=== PATIENT | male | born 1945 | race Caucasian/White ===

== ENCOUNTER 2018-02-15 22:49 | Inpatient (IN) ==
[2018-02-16 00:13] LABS: Basophils % 0.1 %; Hematocrit 39.7 % (37.5-50.1); Hemoglobin 13.9 g/dL (12.9-16.9); Immature Granulocytes % 1.5 % (0-4); Lymphocytes # 0.9 K/mcL (0.6-4.6); Lymphocytes % 4.4 %; Mean Corpuscular Hemoglobin 31.4 pg (28.0-33.3); Mean Corpuscular Volume 89.6 fL (83.0-100.0); Mean Platelet Volume 10.3 fL (9.4-12.4); Monocytes # 1.2 K/mcL (0.0-1.3); Monocytes % 5.4 %; Neutrophils # 18.9 K/mcL (1.6-8.9); Platelet Count 203 K/mcL (140-400); Red Blood Count 4.43 M/mcL (4.19-5.50); Red Cell Distribution Width 12.6 % (11.5-14.5); Segmented Neutrophils % 88.6 %
[2018-02-16 00:17] LABS: Prothrombin Time 10.8 Seconds (9.4-12.1)
[2018-02-16 00:33] LABS: BUN/Creatinine Ratio 21 (6-26); Blood Urea Nitrogen 29 mg/dL (8-23); Calcium 9.1 mg/dL (8.6-10.3); Carbon Dioxide 23 mEq/L (23-29); Chloride 104 mEq/L (98-107); Glucose 258 mg/dL (70-105); Osmolality,Calculated 293 (280-300); Potassium 4.4 mEq/L (3.5-5.1); Sodium 134 mEq/L (136-145); eGFR For Non-African Americans 52 (> 60)
[2018-02-16 00:38] LABS: Troponin I 0.05 ng/mL (< 0.04)
[2018-02-16] MEDS ORDERED: Aspirin 81 MG TAB.CHEW PO STA (00:40)
--- NOTE | 2018-02-16 01:01 | Emergency Department Note ---
Disposition Clinical Impression: Hx of heart bypass surgery Chest pain Qualifiers: Chest pain type: unspecified Qualified Code(s): R07.9 - Chest pain, unspecified Disposition: Admitted As Inpatient Condition: Good Time of Disposition: 02:11 General Adult HPI - General Chief complaint: ED Chest Pain Stated complaint: CP Time Seen by Provider: 02/16/18 00:03 Source: patient Mode of arrival: ambulatory Limitations: language barrier Nursing Notes Reviewed: Yes Vital Signs Reviewed: Yes - History of Present Illness HPI Narrative: Patient is a 72-year-old male that since emergency Department with chest heaviness. Patient states that this began at approximately 2100 last night. Patient states that he had chest heaviness and shoulder pain. States that he did take 2 nitroglycerin produced seem to relieve his tightness and heaviness. Patient states he did not really have any nausea or shortness of breath associated with his chest pain. Family states that they felt like he was having increased work of breathing but he states that he did not. Patient states that he has a significant cardiac history of quadruple bypass with 8 stents placed in his heart. Patient states that he has now pain free and does not have any heaviness on his chest. Pain Scale: 7 - Related Data Home Medications Medication Instructions Recorded Confirmed Aspirin Enteric Coated [Aspirin EC] 81 mg PO HS 05/06/15 05/06/15 Metoprolol XL (24 HR) Succ [Toprol 25 mg PO DAILY 05/06/15 05/06/15 XL] Multivitamin [Flintstones] 1 each PO DAILY 05/06/15 05/06/15 Simvastatin [Zocor] 40 mg PO HS 05/06/15 05/06/15 Valsartan [Diovan] 40 mg PO DAILY 05/06/15 05/06/15 Amlodipine Besylate 5 mg PO DAILY 02/16/18 02/16/18 Methocarbamol [Robaxin-750] 750 mg PO DAILY 02/16/18 02/16/18 Primidone [Mysoline] 50 mg PO HS 02/16/18 02/16/18 Allergies Allergy/AdvReac Type Severity Reaction Status Date / Time clopidogrel [From Plavix] Allergy Anaphylaxis Verified 05/06/15 08:43 Sulfa (Sulfonamide AdvReac See Verified 05/06/15 08:43 Antibiotics) Comments tramadol AdvReac Nausea Verified 09/14/18 22:58 All systems ED: reviewed and negative except as stated. Cardiovascular: Reports: chest pain Respiratory: Denies: dyspnea Gastrointestinal: Denies: abdominal pain, nausea Past Medical History - Past Medical History Medical history: Reports: arthritis, atrial fibrillation, coronary artery disease, hyperlipidemia, hypertension Surgical history: Reports: angioplasty/stent, coronary bypass (CABG) Psychiatric history: Reports: anxiety, depression - Social History Smoking Status: Former smoker Smokeless Tobacco Status: No Alcohol use: Reports: occasionally Drug use: Reports: none Physical Exam - General Limitations: no limitations General appearance: alert, in no apparent distress - Head Head exam: atraumatic, normocephalic - Eye Eye exam: Present: normal appearance, EOMI - Neck Neck exam: Present: normal inspection, full ROM, trachea midline - Respiratory Respiratory exam: Present: normal lung sounds bilaterally. Absent: respiratory distress, wheezes - Cardiovascular Cardiovascular exam: Present: regular rate, normal rhythm, normal heart sounds, +S1, +S2 - Abdominal Exam Abdominal exam: Present: soft, Non-Tender, normal bowel sounds - Neurological Exam Neurological exam: Present: alert, oriented X3 - Psychiatric Psychiatric exam: Present: normal affect, normal mood - Skin Skin exam: Present: warm, dry, intact Course Vital Signs Temperature 97.8 F 02/15/18 22:52 Pulse Rate 65 02/15/18 22:52 Respiratory Rate 16 02/15/18 22:52 Blood Pressure 187/69 02/15/18 22:52 O2 Sat by Pulse Oximetry 98 02/15/18 22:52 Temperature 97.8 F 02/15/18 22:52 Pulse Rate 56 02/16/18 01:07 Respiratory Rate 17 02/16/18 01:07 Blood Pressure 154/60 02/16/18 01:11 O2 Sat by Pulse Oximetry 98 02/16/18 01:07 Oxygen Delivery Oxygen Delivery Room Air Medical Decision Making - [facility] Narrative Medical decision making narrative: Due the patient presenting to the emergency department with chest pressure and a significant cardiac history there is concern for possible cardiac involvement. We will obtain basic laboratory testings EKG and chest x-ray. EKG did not show any ischemic changes. Chest x-ray showed no acute process. The patient did have an elevated troponin of 0.05. Patient also had an elevated white count of 21.3 however this is a nonspecific finding. Patient does have an elevated glucose of 258. Patient's creatinine is slightly worsened and is 1.35 today. Due to the patient having recent chest pressure was relieved by nitroglycerin and elevated troponin without previous for comparison I feel it is important the patient be admitted to the hospital for further evaluation and management. The patient will be admitted to the medical service. Called and spoke with the admitting hospitalist and he is accepted the patient to their service or patient be admitted to the hospital this time for further evaluation and management. - Medical Records Medical records reviewed: Yes I reviewed the patient's medical records. - Lab Data Lab results reviewed: Yes I reviewed the patient's lab results. Result diagrams: 02/16/18 00:01 02/16/18 00:01 Lab Results 02/16/18 02/16/18 02/16/18 Range/Units 00:01 00:01 00:01 WBC 21.3 H (4.3-11.1) K/mcL RBC 4.43 (4.19-5.50) M/mcL Hgb 13.9 (12.9-16.9) g/dL Hct 39.7 (37.5-50.1) % MCV 89.6 (83.0-100.0) fL MCH 31.4 (28.0-33.3) pg MCHC 35.0 (31.6-35.5) g/dL RDW 12.6 (11.5-14.5) % Plt Count 203 (140-400) K/mcL MPV 10.3 (9.4-12.4) fL Immature Gran % 1.5 (0-4) % Seg Neutrophils % 88.6 % Lymphocytes % 4.4 % Monocytes % 5.4 % Eosinophils % 0.0 % Basophils % 0.1 % Neutrophils # 18.9 H (1.6-8.9) K/mcL Lymphocytes # 0.9 (0.6-4.6) K/mcL Monocytes # 1.2 (0.0-1.3) K/mcL Eosinophils # 0.0 (0.0-0.6) K/mcL Basophils # 0.0 (0.0-0.2) K/mcL PT 10.8 (9.4-12.1) Seconds INR 1.0 APTT 28.0 (26.0-36.0) Seconds Sodium 134 L (136-145) mEq/L Potassium 4.4 (3.5-5.1) mEq/L Chloride 104 (98-107) mEq/L Carbon Dioxide 23 (23-29) mEq/L BUN 29 H (8-23) mg/dL Creatinine 1.35 H (0.70-1.30) mg/dL Est GFR ( Amer) > 60 (> 60) Est GFR (Non-Af Amer) 52 L (> 60) BUN/Creatinine Ratio 21 (6-26) Glucose 258 H (70-105) mg/dL Calculated Osmolality 293 (280-300) Calcium 9.1 (8.6-10.3) mg/dL Troponin I 0.05 H* (< 0.04) ng/mL - Radiology Data Radiology results reviewed: Yes I reviewed the patient's radiology results. Chest X-Ray 02/16/18 00:01 IMPRESSION: No acute disease. D/ / Shola Mart MD / Shola Mart MD Interpreting Provider: Shola Mart MD
[2018-02-16] MEDS ORDERED: 0.9 % Sodium Chloride 1,000 ML IVC SCH (02:30)
--- NOTE | 2018-02-16 02:35 | Emergency Department Note ---
Disposition Clinical Impression: Hx of heart bypass surgery Chest pain Qualifiers: Chest pain type: unspecified Qualified Code(s): R07.9 - Chest pain, unspecified Disposition: Admitted As Inpatient Condition: Good General Adult HPI - General Chief complaint: ED Chest Pain Stated complaint: CP Time Seen by Provider: 02/16/18 00:03 Source: patient Mode of arrival: ambulatory Limitations: no limitations Nursing Notes Reviewed: Yes Vital Signs Reviewed: Yes - History of Present Illness Pain Scale: 0 - Related Data Home Medications Medication Instructions Recorded Confirmed Aspirin Enteric Coated [Aspirin EC] 81 mg PO HS 05/06/15 02/16/18 Metoprolol XL (24 HR) Succ [Toprol 50 mg PO DAILY 05/06/15 02/16/18 XL] Multivitamin [Flintstones] 1 each PO DAILY 05/06/15 02/16/18 Simvastatin [Zocor] 40 mg PO HS 05/06/15 02/16/18 Valsartan [Diovan] 40 mg PO DAILY 05/06/15 02/16/18 Amlodipine Besylate 5 mg PO DAILY 02/16/18 02/16/18 Methocarbamol [Robaxin-750] 750 mg PO DAILY 02/16/18 02/16/18 Primidone [Mysoline] 50 mg PO HS 02/16/18 02/16/18 Allergies Allergy/AdvReac Type Severity Reaction Status Date / Time clopidogrel [From Plavix] Allergy Anaphylaxis Verified 05/06/15 08:43 Sulfa (Sulfonamide AdvReac See Verified 05/06/15 08:43 Antibiotics) Comments tramadol AdvReac Nausea Verified 02/15/18 22:58 Cardiovascular: Reports: chest pain Respiratory: Denies: dyspnea Gastrointestinal: Denies: abdominal pain, nausea Past Medical History - Past Medical History Medical history: Reports: arthritis, atrial fibrillation, coronary artery disease, hyperlipidemia, hypertension Surgical history: Reports: angioplasty/stent, coronary bypass (CABG) Psychiatric history: Reports: anxiety, depression - Social History Smoking Status: Former smoker Smokeless Tobacco Status: No Alcohol use: Reports: occasionally Drug use: Reports: none Physical Exam - General Limitations: no limitations General appearance: alert, in no apparent distress Course Vital Signs Temperature 97.8 F 02/15/18 22:52 Pulse Rate 65 02/15/18 22:52 Respiratory Rate 16 02/15/18 22:52 Blood Pressure 187/69 02/15/18 22:52 O2 Sat by Pulse Oximetry 98 02/15/18 22:52 Temperature 97.8 F 02/15/18 22:52 Pulse Rate 56 02/16/18 01:07 Respiratory Rate 17 02/16/18 01:07 Blood Pressure 154/60 02/16/18 01:11 O2 Sat by Pulse Oximetry 98 02/16/18 01:07 Oxygen Delivery Oxygen Delivery Room Air Medical Decision Making - Medical Records Medical records reviewed: Yes I reviewed the patient's medical records. - Lab Data Lab results reviewed: Yes I reviewed the patient's lab results. Result diagrams: 02/16/18 00:01 02/16/18 00:01 Lab Results 02/16/18 02/16/18 02/16/18 Range/Units 00:01 00:01 00:01 WBC 21.3 H (4.3-11.1) K/mcL RBC 4.43 (4.19-5.50) M/mcL Hgb 13.9 (12.9-16.9) g/dL Hct 39.7 (37.5-50.1) % MCV 89.6 (83.0-100.0) fL MCH 31.4 (28.0-33.3) pg MCHC 35.0 (31.6-35.5) g/dL RDW 12.6 (11.5-14.5) % Plt Count 203 (140-400) K/mcL MPV 10.3 (9.4-12.4) fL Immature Gran % 1.5 (0-4) % Seg Neutrophils % 88.6 % Lymphocytes % 4.4 % Monocytes % 5.4 % Eosinophils % 0.0 % Basophils % 0.1 % Neutrophils # 18.9 H (1.6-8.9) K/mcL Lymphocytes # 0.9 (0.6-4.6) K/mcL Monocytes # 1.2 (0.0-1.3) K/mcL Eosinophils # 0.0 (0.0-0.6) K/mcL Basophils # 0.0 (0.0-0.2) K/mcL PT 10.8 (9.4-12.1) Seconds INR 1.0 APTT 28.0 (26.0-36.0) Seconds Sodium 134 L (136-145) mEq/L Potassium 4.4 (3.5-5.1) mEq/L Chloride 104 (98-107) mEq/L Carbon Dioxide 23 (23-29) mEq/L BUN 29 H (8-23) mg/dL Creatinine 1.35 H (0.70-1.30) mg/dL Est GFR ( Amer) > 60 (> 60) Est GFR (Non-Af Amer) 52 L (> 60) BUN/Creatinine Ratio 21 (6-26) Glucose 258 H (70-105) mg/dL Calculated Osmolality 293 (280-300) Calcium 9.1 (8.6-10.3) mg/dL Troponin I 0.05 H* (< 0.04) ng/mL - Radiology Data Radiology results reviewed: Yes I reviewed the patient's radiology results. Chest X-Ray 02/16/18 00:01 IMPRESSION: No acute disease. D/ / Shola Mart MD / Shola Mart MD Interpreting Provider: Shola Mart MD - EKG Data EKG #1 EKG attestation: Yes I reviewed and interpreted this EKG. EKG results narrative: EKG shows a normal sinus rhythm with ventricular rate is 62. No acute ST segment elevation or depression. No arrhythmia or ectopy. DE interval 194. QRS duration 120. Attestation Statement - Attestation Attestation: I, Byron Lechuga MD, personally evaluated this patient and discussed their management with the resident physician. I reviewed the resident's note and agree with the documented findings, medical decision making, and plan of care. 72-year-old male with history of coronary artery disease and status post CABG as well as coronary artery stents presents to the emergency department with a complaint of an episode of mid substernal chest pressure and tightness which started about 9:30 this evening while he was sitting watching television. Patient took 2 nitroglycerin and had complete relief of the chest pain after the second nitroglycerin. The total episode lasted about 20 minutes or so. He denies any increased shortness of breath with the episode. No diaphoresis. No nausea or vomiting. The pain did seem to radiate to both shoulders. He denies any pain at present. On examination patient is a well-developed well-nourished well-appearing elderly male in no acute distress. He is alert and oriented 3. There is no cyanosis or diaphoresis. Chest is nontender to palpation. Breath sounds are clear and equal bilaterally. Heart regular rate and rhythm. Abdomen soft and nontender with normal bowel sounds. Trace pedal edema. No acute ischemic changes on EKG. Chest x-ray negative. Labs reviewed. Troponin 0.05. The hospitalist, Dr. Townsend, was consulted and accepted admission of the patient.
--- NOTE | 2018-02-16 02:40 | Internal Med History&Physical ---
Date of Encounter: 02/16/18 Time of Encounter: 02:37 Internal Medicine - H&P: HPI Chief complaint: Chest pressure Admitted From: Home Plans for Post Hospital Care: Home History of present illness: Mr. Boyd is a 72 year old with a history of hypertension, hyperlipidemia, peripheral artery disease and severe coronary artery disease status post quadruple bypass and currently having 8 indwelling stents in his heart as well as 5 stents in his lower extremities, last undergoing cardiac catheter 3 years ago where he was seen to have severe three-vessel disease and 2 of 3 patent bypass grafts with an occluded SVG OM distribution supplied by collaterals with the recommendation of optimized medical therapy. He presents now with a complaint of chest pressure that started about 9:30 PM tonight while he was at rest with no inciting factor which prompted him to take one tablet of nitroglycerin which he says he has not taking in many years. The second tablets to achieve comfort and relief from the pressure. Here he was found hemodynamically stable and was given loading dose of aspirin. He says since his last cardiac catheter he was taken off prasugrel and is currently on low-dose aspirin alone. His EKG did not show acute signs of ischemia however he had a mildly elevated troponin at 0.05 for which reason he is now admitted for further observation. Assessment he is laying comfortably in bed in no acute distress stating that he feels well and has no ongoing discomfort. He denies being short of breath. He does acknowledge that he has intermittent chest pain on and off with moderate physical exertion however in this case he was at rest. He reportedly quit smoking 23 years ago. Past Med Surg Social Fam HX - Past Medical History Medical history: arthritis, atrial fibrillation, coronary artery disease, hyperlipidemia, hypertension Additional medical history: UNSTABLE ANGINA Psychiatric history: anxiety, depression - Past Surgical History Surgical History: angioplasty/stent, coronary bypass (CABG) Additional surgical history: CABG 17 YR AGO. CORONARY STENT X8. PERIPHERAL ARTERY STENTS - Social History Smoking Status: Former smoker Smokeless Tobacco Status: No Alcohol use: occasionally Drug use: none Internal Medicine - H&P: Meds Aspirin Enteric Coated [Aspirin EC] 81 mg PO HS 05/06/15 [History] Metoprolol XL (24 HR) Succ [Toprol XL] 50 mg PO DAILY 05/06/15 [History] Multivitamin [Flintstones] 1 each PO DAILY 05/06/15 [History] Simvastatin [Zocor] 40 mg PO HS 05/06/15 [History] Valsartan [Diovan] 40 mg PO DAILY 05/06/15 [History] Amlodipine Besylate 5 mg PO DAILY 02/16/18 [History] Methocarbamol [Robaxin-750] 750 mg PO DAILY 02/16/18 [History] Primidone [Mysoline] 50 mg PO HS 02/16/18 [History] 3 Allergy/AdvReac Type Severity Reaction Status Date / Time clopidogrel [From Plavix] Allergy Anaphylaxis Verified 05/06/15 08:43 Sulfa (Sulfonamide AdvReac See Verified 05/06/15 08:43 Antibiotics) Comments tramadol AdvReac Nausea Verified 02/15/18 22:58 All Systems PM: A 10-system review of systems was performed and is negative for pertinent findings except as documented above in the HPI. - Constitutional Vitals: Temp Pulse Resp BP Pulse Ox 97.8 F 56 17 154/60 98 02/15/18 22:52 02/16/18 01:07 02/16/18 01:07 02/16/18 01:11 02/16/18 01:07 Exam: Vitals: Reviewed General: Well-developed white male lying comfortably in bed in no acute distress Skin: Warm and supple HEENT: Moist mucous membranes. No conjunctivae pallor. Neck: No lymphadenopathy. No JVD. No carotid bruits. No palpable thyroid. Chest: Normal thoracic expansion. Normal breath sounds. Clear to auscultation. Heart: Normal S1 & S2; rhythmic. Abdomen: Non-distended, soft and non-tender to palpation. No peritoneal reaction. Extremities: No clubbing, cyanosis or edema. No calf tenderness. Normal distal pulses. Neurological: Awake, alert and oriented to person, place and time. No focal deficits. Psych: Affect appropriate. Internal Med - H&P Results - Labs CBC & Chem 7: 02/16/18 00:01 02/16/18 00:01 - Assessment and plan (1) Chest pain Current Visit: Yes Status: Acute Assessment and plan: The patient is at high risk of ACS given his history. His pain presentation is rather typical and suggestive of an unstable angina episode. His EKG is not characteristic of ischemia however he has a mildly elevated troponin. I do not have his last troponin levels to compare with to see how new it is or not. For now he is chest pain free and hemodynamically stable. He has received laoding dose of ASA. Will obtain another troponin level in a few hours while he remains on telemetry and if it increases, will start heparin anticoagulation in the interim pending cardiology evaluation. Qualifiers: Chest pain type: chest pain due to myocardial ischemia Ischemic chest pain type: unstable angina pectoris Qualified Code(s): I20.0 - Unstable angina (2) CAD (coronary artery disease) Current Visit: Yes Status: Acute Assessment and plan: Will consult caridology for evaluation as he may need another heart cath or further aggressive medical therapy. For now will keep on ASA and statin. Qualifiers: Coronary Disease-Associated Artery/Lesion type: bypass graft [place] vs. transplanted heart: [place] heart Associated angina: with unstable angina Qualified Code(s): I25.700 - Atherosclerosis of coronary artery bypass graft(s) , unspecified, with unstable angina pectoris (3) PAD (peripheral artery disease) Current Visit: Yes Status: Acute Assessment and plan: Stable with no signs of insufficiency at this time. Remains on antiplatelet and statin therapy. (4) HTN (hypertension) Current Visit: Yes Status: Acute Assessment and plan: Will continue home dose of amlodipine. Qualifiers: Hypertension type: essential hypertension Qualified Code(s): I10 - Essential (primary) hypertension (5) HLD (hyperlipidemia) Current Visit: Yes Status: Acute Assessment and plan: Will check lipid panel and continue statin therapy. Qualifiers: Hyperlipidemia type: unspecified Qualified Code(s): E78.5 - Hyperlipidemia , unspecified (6) DVT prophylaxis Current Visit: Yes Status: Acute Assessment and plan: SubQ heparin indicated. - Time Spent With Patient Total time spent is greater than 50% in coordination of care (as documented) at patient's floor/unit and/or counseling patient: Greater than 35 minutes
[2018-02-16 04:25] LABS: Basophils % 0.1 %; Hematocrit 40.1 % (37.5-50.1); Immature Granulocytes % 1.2 % (0-4); Lymphocytes # 1.2 K/mcL (0.6-4.6); Lymphocytes % 5.8 %; Mean Corpuscular HGB Conc 34.9 g/dL (31.6-35.5); Mean Corpuscular Hemoglobin 31.3 pg (28.0-33.3); Mean Corpuscular Volume 89.7 fL (83.0-100.0); Mean Platelet Volume 10.2 fL (9.4-12.4); Monocytes % 4.9 %; Neutrophils # 18.6 K/mcL (1.6-8.9); Platelet Count 175 K/mcL (140-400); Red Blood Count 4.47 M/mcL (4.19-5.50); Red Cell Distribution Width 12.6 % (11.5-14.5)
[2018-02-16 04:40] LABS: Chol/HDL Ratio 2.9 (0-4.9)
[2018-02-16 04:43] LABS: Alanine Aminotransferase 26 Units/L (7-52); Albumin 4.1 g/dL (3.5-5.7); Albumin/Globulin Ratio 1.8 (1.1-2.2); Alkaline Phosphatase 64 Units/L (34-104); Aspartate Amino Transferase 22 Units/L (13-39); BUN/Creatinine Ratio 22 (6-26); Bilirubin,Direct 0.1 mg/dL (0.0-0.2); Bilirubin,Indirect 0.2 mg/dL (0.0-1.2); Bilirubin,Total 0.3 mg/dL (0.3-1.0); Blood Urea Nitrogen 27 mg/dL (8-23); Calcium 9.1 mg/dL (8.6-10.3); Carbon Dioxide 20 mEq/L (23-29); Chloride 108 mEq/L (98-107); Globulin 2.3 g/dL (2.4-3.5); Glucose 144 mg/dL (70-105); Osmolality,Calculated 290 (280-300); Potassium 4.5 mEq/L (3.5-5.1); Sodium 136 mEq/L (136-145); Total Protein 6.4 g/dL (6.4-8.9); eGFR For Non-African Americans 58 (> 60)
[2018-02-16 04:46] LABS: Troponin I 0.06 ng/mL (< 0.04)
[2018-02-16] MEDS: *HR* Heparin 5,000 UNIT/ML VIAL SQ SCH ×3 (06:01→21:36)
[2018-02-16] MEDS ORDERED: Metoprolol XL (24 HR) Succ 25 MG TAB.ER.24H PO SCH (09:00)
[2018-02-16] MEDS ORDERED: amLODIPine 5 MG TABLET PO SCH (09:00)
--- NOTE | 2018-02-16 10:12 | Event Note ---
Date of Encounter: 02/16/18 Time of Encounter: 08:00 Patient was seen and examined. Denies chest pain or shortness of breath. Complain of chronic dry cough for months. Otherwise no complaints. On exam, in no acute distress, lungs are clear, heart: S1S2, RRR, HR 56. No pedal edema. Three troponin: 0.05-0.06-0.05 Echo pending, cardio consult pending. Plan: 1. CT chest w/o contrast for dry cough 2. Cont current treatment for CAD, closely monitor pt. 3. Follow cardio recommendation for further management.
[2018-02-16] MEDS: Methocarbamol 750 MG TABLET PO SCH (10:54)
[2018-02-16] MEDS: Multivit/Ca/Min/Fe/FA 1 TAB TABLET PO SCH (10:54)
[2018-02-16] MEDS: Valsartan 80 MG TABLET PO SCH (10:54)
--- NOTE | 2018-02-16 11:21 | Cardiology Consult Note ---
<Rosalia Montano - Last Filed: 02/16/18 11:32> Date of Encounter: 02/16/18 Time of Encounter: 10:00 Assessment and Plan (1) Chest pressure Current Visit: Yes Status: Acute Per cardiology: -Admitted with chest pressure. Different from previous angina. -Denies current chest pain/pressure. -Mildly elevated troponin. -TTE pending. -See elevated troponin. (2) Elevated troponin Current Visit: Yes Status: Acute Per cardiology: -Troponins 0.05, 0.06, 0.05 in the setting of mild renal insufficiency, leukocytosis, hypertension (BP 180s systolic admission). -admits to chest pressure on admission, denies current. -No acute ischemic ECG changes. -TTE pending. -On asa, statin, BB. -Suspect troponin elevation demand ischemia. -TTE for further evaluation. -Can consider ischemic evaluation pending TTE. (3) CAD (coronary artery disease) Current Visit: Yes Status: Chronic Per cardiology: -Known severe CAD s/p CABG 1995. -Last [facility] 2014 with 2/3 patent bypass grafts with collaterals feeding area of occluded graft. Medical management was recommended at that time. -On asa, statin, BB. Qualifiers: Coronary Disease-Associated Artery/Lesion type: bypass graft [place] vs. transplanted heart: [place] heart Associated angina: angina presence unspecified Qualified Code(s): I25.810 - Atherosclerosis of coronary artery bypass graft(s) without angina pectoris Discussion w patient/family: The assessment and plan as outlined above was discussed with the patient and/or family members who expressed understanding and agreement. All questions were answered. Thank you for involving us in the care of your patient. Please call with any questions. Discussed and reviewed with . History of Present Illness Consult date: 02/16/18 Requesting physician: Emre Townsend Consult reason: elevated troponin Chief complaint: chest pain History of present illness: Mr. Boyd is a 72 year old male with a relevant past medical history of CAD s /p CABG and multiple PCI, HLD, HTN, PAD s/p peripheral intervention, recent injection in shoulder for pain who presented to [facility] with complaints of chest pressure. Patient reports he has been having increased shortness of breath with exertion for the past 2 weeks. Patient reports last night while sitting, he had sudden onset of chest pressure. Patient states pressure radiated to both arms. Patient states he took 2 nitro without symptom relief. Patient states after about 20 minutes, pressure subsided. Denies nausea, vomiting, diaphoresis. Patient states this pressure was different from previous angina. Denies current chest pain/pressure. Denies fever, chills. Past Med Surg Social Fam HX - Past Medical History Attestation: Yes The following information was validated with the patient. Source: patient, old records reviewed Medical history: arthritis, atrial fibrillation, coronary artery disease, hyperlipidemia, hypertension Additional medical history: UNSTABLE ANGINA Psychiatric history: anxiety, depression - Past Surgical History Surgical History: angioplasty/stent, coronary bypass (CABG) Additional surgical history: CABG 17 YR AGO. CORONARY STENT X8. PERIPHERAL ARTERY STENTS - Social History Smoking Status: Former smoker Smokeless Tobacco Status: No Alcohol use: occasionally Drug use: none - Family History Mother Hx Family Cancer: Yes Father Hx Family Cancer: Yes Medications and Allergies Aspirin Enteric Coated [Aspirin EC] 81 mg PO HS 05/06/15 [History] Multivitamin [Flintstones] 1 tab PO DAILY 05/06/15 [History] Amlodipine Besylate 5 mg PO DAILY 02/16/18 [History] Methocarbamol [Robaxin-750] 750 mg PO DAILY 02/16/18 [History] Metoprolol Succinate [Toprol Xl] 50 mg PO DAILY 02/16/18 [History] Primidone [Mysoline] 50 mg PO HS 02/16/18 [History] Simvastatin [Zocor] 40 mg PO HS 02/16/18 [History] Valsartan [Diovan] 40 mg PO DAILY 02/16/18 [History] 3 Allergy/AdvReac Type Severity Reaction Status Date / Time clopidogrel [From Plavix] Allergy Anaphylaxis Verified 05/06/15 08:43 Sulfa (Sulfonamide AdvReac See Verified 05/06/15 08:43 Antibiotics) Comments tramadol AdvReac Nausea Verified 02/15/18 22:58 All Systems Review: The remainder of the systems were reviewed and are negative - Cardiovascular Cardiovascular: as per HPI, chest pain at rest, dyspnea on exertion, radiating jaw, neck or arm pain Physical Examination Vital Signs Temperature 97.8 F 02/15/18 22:52 Pulse Rate 65 02/15/18 22:52 Respiratory Rate 16 02/15/18 22:52 Blood Pressure 187/69 02/15/18 22:52 O2 Sat by Pulse Oximetry 98 02/15/18 22:52 Temperature 97.7 F 02/16/18 11:21 Pulse Rate 51 02/16/18 11:21 Respiratory Rate 16 02/16/18 11:21 Blood Pressure 153/63 02/16/18 11:21 O2 Sat by Pulse Oximetry 99 02/16/18 11:21 Oxygen Delivery Oxygen Delivery Room Air General: Conversant, No Apparent Distress HEENT: Atraumatic, Normocephaly, Mucus Membranes Moist Neck: No JVD, Normal carotid pulses Cardiac: Reg Rate and Rhythm, Normal S1 and S2, No Murmur Lungs: Normal Breath Sounds, No Wheeze, Rales, Rhonchi Neuro: Alert and responsive, No focal deficits noted Abdomen: Soft, Non-Tender Skin: No rashes noted on visualized skin Musculoskeletal: No Chest Wall Tenderness Extremities: No Clubbing, No Cyanosis, No Edema, Normal Pulses Results 02/16/18 04:09 02/16/18 04:09 Lab Results Impressions Chest X-Ray 02/16/18 00:01 IMPRESSION: No acute disease. D/ / Shola Mart MD / Shola Mart MD Interpreting Provider: Shola Mart MD Chest CT 02/16/18 09:15 IMPRESSION: 1. No acute intrathoracic abnormality to explain the patient's presenting dry cough. 2. Mild emphysema. 3. There is a 6 x 6 mm left posterior lung base nodule, indeterminate. RECOMMENDATIONS: Fleischner Society guidelines for follow-up and management of incidentally detected pulmonary nodules: Single Solid Nodule: Nodule size equals 6-8 mm In a low-risk patient, CT at 6-12 months, then consider CT at 18-24 months. In a high-risk patient, CT at 6-12 months, then CT at 18-24 months. - Low risk patients include individuals with minimal or absent history of smoking and other known risk factors. - High risk patients include individuals with a history or smoking or known risk factors. Radiology 2017 http://pubs.rsna.org/doi/full/10.1148/radiol.7650765973 D/ /16/2018 10:43:38 Kamlesh Balbuena MD / mateo Interpreting Provider: Kamlesh Balbuena MD Active Medications Amlodipine Besylate (Norvasc) 5 mg PO DAILY [facility] Stop: 08/18/18 09:01 Last Admin: 02/16/18 10:54 Dose: 5 mg Aspirin (Aspirin Ec) 81 mg PO HS [facility] Stop: 08/18/18 21:01 Heparin Sodium (Porcine) (Heparin) 5,000 unit SQ Q8HCO [facility] Stop: 08/18/18 06:01 Last Admin: 02/16/18 06:01 Dose: 5,000 unit Sodium Chloride (0.9 % Sodium Chloride) 1,000 mls @ 83 mls/hr IVC .Q12H3M [facility] Stop: 02/16/18 14:32 Last Admin: 02/16/18 03:30 Dose: 83 mls/hr Methocarbamol (Robaxin) 750 mg PO DAILY [facility] Stop: 08/18/18 09:01 Last Admin: 02/16/18 10:54 Dose: 750 mg Metoprolol Succinate (Toprol Xl) 50 mg PO DAILY [facility] Stop: 08/18/18 09:01 Last Admin: 02/16/18 10:54 Dose: 50 mg Multivitamins/Calcium (Thera M Plus) 1 tab PO DAILY [facility] Stop: 08/18/18 09:01 Last Admin: 02/16/18 10:54 Dose: 1 tab Primidone (Mysoline) 50 mg PO HS [facility] Stop: 08/18/18 21:01 Simvastatin (Zocor) 40 mg PO HS [facility] PRN Reason: Protocol Stop: 08/18/18 21:01 Valsartan (Diovan) 40 mg PO DAILY [facility] Stop: 08/18/18 09:01 Last Admin: 02/16/18 10:54 Dose: 40 mg Laboratory Tests 04/27/15 02/16/18 02/16/18 15:09 00:01 00:01 WBC 21.3 H Hgb 13.9 Creatinine 1.20 1.35 H Troponin I 0.05 H* 02/16/18 02/16/18 04:09 09:15 WBC Hgb Creatinine 1.23 Troponin I 0.06 H* 0.05 H* - Imaging and Cardiology Chest Xray: report reviewed Echo: report reviewed Cardiac cath: report reviewed - EKG Interpretation EKG results cardiology: personally reviewed (ECG with SR, HR 62. Non-specific T wave abnormalities noted.), other (Telemetry reviewed with average HR previous 12 hours noted to be 53, SB. PVCs and PACs noted.) Consult Discharge Plan - Plan [facility]errals: [facility]Primary Care Provider] - <Tenzin Meehan - Last Filed: 02/16/18 17:33> Date of Encounter: 02/16/18 - Attending Attestation Patient was seen and evaluated independently by me. Findings, assessment and plan were discussed at length with patient, questions answered. Agree with nurse practitioner's documentation. Addition as follows, 72 yoCM ho CABG with 2/3 grafts patent and good collateral to occluded SVG-OM, HTN, HLD, arthritis. P/w resting chest pressure last night different from piror angina. BP elevated, mild trop elevation w/o dynamic ECG change. Steroid shoulder injection several days ago with leukocytosis w/ left shift. C/o mild MOREAU 2-3 wks, chronic LE edema. Echo read by me, normal LV and RV function, no RWMA or sig valvular abn A: NSTEMI type II vs I, hypertensive urgency/crisis, new MOREAU of unclear etiology P: given new MOREAU, atypical angina with positive troponin s/p CABG, pharm nuclear stress on Sunday ( arthritis and limited exercise capacity, unlikely to achieve goal HR) BP control per primary team Tenzin Meehan MD, PhD Assessment and Plan Discussion w patient/family: The assessment and plan as outlined above was discussed with the patient and/or family members who expressed understanding and agreement. All questions were answered. Thank you for involving us in the care of your patient. Please call with any questions. History of Present Illness History of present illness: Mr. Boyd is a 72 year old male All Systems Review: The remainder of the systems were reviewed and are negative Physical Examination Vital Signs, Last 4 Hours Temp Pulse Resp BP Pulse Ox 02/16/18 15:35 97.5 F L 54 18 158/81 99 Results 02/16/18 04:09 02/16/18 04:09 Lab Results 02/16/18 02/16/18 02/16/18 04:09 04:09 09:15 WBC 21.1 H Hgb 14.0 Hct 40.1 Plt Count 175 Sodium 136 Potassium 4.5 Chloride 108 H Carbon Dioxide 20 L BUN 27 H Creatinine 1.23 Glucose 144 H Calcium 9.1 Total Bilirubin 0.3 AST 22 ALT 26 Alkaline Phosphatase 64 Troponin I 0.06 H* 0.05 H*
[2018-02-16] MEDS: Primidone 50 MG TABLET PO SCH (21:36)
[2018-02-16] MEDS: Aspirin Enteric Coated 81 MG Tablet PO SCH (21:36)
[2018-02-17 03:49] LABS: Basophils % 0.2 %; Hematocrit 38.9 % (37.5-50.1); Hemoglobin 13.4 g/dL (12.9-16.9); Immature Granulocytes % 1.3 % (0-4); Lymphocytes # 1.4 K/mcL (0.6-4.6); Mean Corpuscular HGB Conc 34.4 g/dL (31.6-35.5); Mean Corpuscular Hemoglobin 30.3 pg (28.0-33.3); Mean Platelet Volume 10.7 fL (9.4-12.4); Monocytes # 0.9 K/mcL (0.0-1.3); Monocytes % 5.8 %; Neutrophils # 12.6 K/mcL (1.6-8.9); Platelet Count 197 K/mcL (140-400); Red Blood Count 4.42 M/mcL (4.19-5.50); Segmented Neutrophils % 83.7 %
[2018-02-17 04:12] LABS: BUN/Creatinine Ratio 22 (6-26); Blood Urea Nitrogen 26 mg/dL (8-23); Calcium 8.8 mg/dL (8.6-10.3); Carbon Dioxide 22 mEq/L (23-29); Chloride 110 mEq/L (98-107); Glucose 122 mg/dL (70-105); Osmolality,Calculated 296 (280-300); Potassium 4.7 mEq/L (3.5-5.1); Sodium 140 mEq/L (136-145); eGFR For Non-African Americans > 60 (> 60)
[2018-02-17] MEDS: *HR* Heparin 5,000 UNIT/ML VIAL SQ SCH ×3 (05:58→21:10)
[2018-02-17] MEDS: Valsartan 80 MG TABLET PO SCH (09:11)
[2018-02-17] MEDS: Methocarbamol 750 MG TABLET PO SCH (09:11)
[2018-02-17] MEDS: amLODIPine 5 MG TABLET PO SCH (09:11)
[2018-02-17] MEDS: Multivit/Ca/Min/Fe/FA 1 TAB TABLET PO SCH (09:12)
[2018-02-17] MEDS: Metoprolol XL (24 HR) Succ 25 MG TAB.ER.24H PO SCH (09:12)
--- NOTE | 2018-02-17 10:24 | Internal Med Progress Note ---
Hospitalist Progress Note - Encounter Date of Encounter: 02/17/18 Time of Encounter: 08:00 - Subjective Interval History: Patient denies shortness of breath, chest pressure, or chest pain. No further complaints. - Exam Vitals: Temp Pulse Resp BP Pulse Ox 97.8 F 45 16 147/69 97 02/17/18 07:28 02/17/18 07:28 02/17/18 07:28 02/17/18 07:28 02/17/18 07:28 Exam: Vitals: Reviewed General: Well-developed white male lying comfortably in bed in no acute distress Skin: Warm and supple HEENT: Moist mucous membranes. No conjunctivae pallor. Neck: No lymphadenopathy. No JVD. No carotid bruits. No palpable thyroid. Chest: Normal thoracic expansion. Normal breath sounds. Clear to auscultation. Heart: Normal S1 & S2; rhythmic. Abdomen: Non-distended, soft and non-tender to palpation. No peritoneal reaction. Extremities: No clubbing, cyanosis or edema. No calf tenderness. Normal distal pulses. Neurological: Awake, alert and oriented to person, place and time. No focal deficits. Psych: Affect appropriate. - Assessment and Plan (1) Chest pain Current Visit: Yes Status: Acute Assessment and Plan: No further chest pain or pressure. No SOB - Three troponin 0.05-0.06-0.05 - Echocardiogram unremarkable - Cardiology consult appreciated, plan for nuclear stress test in tomorrow a.m. - Continue pt's CAD medications (2) CAD (coronary artery disease) Current Visit: Yes Status: Chronic Assessment and Plan: keep on ASA and statin. Metoprolol decreased to 25 mg po daily b/o sinus bradycardia. (3) PAD (peripheral artery disease) Current Visit: Yes Status: Acute Assessment and Plan: Stable with no signs of insufficiency at this time. Remains on antiplatelet and statin therapy. (4) HTN (hypertension) Current Visit: Yes Status: Acute Assessment and Plan: Will continue home dose of amlodipine and valsartan (5) HLD (hyperlipidemia) Current Visit: Yes Status: Acute Assessment and Plan: Continue statin therapy. LDL 94 (6) DVT prophylaxis Current Visit: Yes Status: Acute Assessment and Plan: SubQ heparin indicated. DVT Prophylaxis: Heparin SC - Time Spent with Patient Total time spent is greater than 50% in coordination of care (as documented) at patient's floor/unit and/or counseling patient: 30 min 25 - 35 minutes Plan of Care Discussed with: patient Internal Medicine: Result - Labs CBC & Chem 7: 02/17/18 03:02 02/17/18 03:02 Labs: Short CBC 02/17/18 Range/Units 03:02 WBC 15.1 H (4.3-11.1) K/mcL Hgb 13.4 (12.9-16.9) g/dL Hct 38.9 (37.5-50.1) % Plt Count 197 (140-400) K/mcL Neutrophils # 12.6 H (1.6-8.9) K/mcL BMP 02/17/18 03:02 Sodium 140 Potassium 4.7 Chloride 110 H Carbon Dioxide 22 L BUN 26 H Creatinine 1.16 Glucose 122 H Calcium 8.8 - ABG Interpretation ABG results: PT/INR, D-dimer PT 10.8 Seconds (9.4-12.1) 02/16/18 00:01 - Impressions Impressions Echocardiogram 02/16/18 02:24 Impressions: LVEF 55%. Normal LV chamber size, wall thickness and function. Normal right ventricular structure and function. Mild mitral regurgitation. Unable to estimate RVSP due to lack of TR jet. RV-RA gradient 16 mmHg (normal). IVC not visualized. Left Ventricular Wall Motion: Rest Echo Findings All wall segments showed normal motion. Findings: Study Quality * Technically adequate exam. ECG Findings * Sinus bradycardia. Left Ventricle * LVEF 55%. * Normal LV chamber size, wall thickness and function. Right Ventricle * Normal right ventricular structure and function. Left Atrium * Normal left atrial size. Right Atrium * Normal right atrial size. Interatrial Septum * Interatrial septum not well evaluated. Aortic Valve * Trileaflet aortic valve. * Trileaflet aortic valve with normal function. * No aortic regurgitation. * No aortic stenosis. Tricuspid Valve * Normal tricuspid valve structure and function. * Trace tricuspid regurgitation. * Estimated RVSP is RV-RA gradient 16mmHg mmHg. * Unable to estimate RVSP due to lack of TR jet. Mitral Valve * Mild mitral regurgitation. * Normal mitral valve structure. Pulmonic Valve * Normal pulmonic valve structure and function. * No pulmonic regurgitation. Aorta * Normally sized aortic root. Pericardium * The pericardium appears normal. IVC * The IVC is not well evaluated. Chest CT 02/16/18 09:15 IMPRESSION: 1. No acute intrathoracic abnormality to explain the patient's presenting dry cough. 2. Mild emphysema. 3. There is a 6 x 6 mm left posterior lung base nodule, indeterminate. RECOMMENDATIONS: Fleischner Society guidelines for follow-up and management of incidentally detected pulmonary nodules: Single Solid Nodule: Nodule size equals 6-8 mm In a low-risk patient, CT at 6-12 months, then consider CT at 18-24 months. In a high-risk patient, CT at 6-12 months, then CT at 18-24 months. - Low risk patients include individuals with minimal or absent history of smoking and other known risk factors. - High risk patients include individuals with a history or smoking or known risk factors. Radiology 2017 http://pubs.rsna.org/doi/full/10.1148/radiol.7783978876 D/ / 02/16/2018 10:43:38 Kamlesh Balbuena MD / mateo Interpreting Provider: Kamlesh Balbuena MD Consult Discharge Plan - Plan Referrals: [facility] [Primary Care Provider] - (1) Chest pain Qualifiers: Chest pain type: chest pain due to myocardial ischemia Ischemic chest pain type: unspecified angina pectoris type Qualified Code(s): I25.9 - Chronic ischemic heart disease, unspecified (2) CAD (coronary artery disease) Qualifiers: Coronary Disease-Associated Artery/Lesion type: bypass graft [place] vs. transplanted heart: [place] heart Associated angina: angina presence unspecified Qualified Code(s): I25.810 - Atherosclerosis of coronary artery bypass graft(s) without angina pectoris (4) HTN (hypertension) Qualifiers: Hypertension type: essential hypertension Qualified Code(s): I10 - Essential (primary) hypertension (5) HLD (hyperlipidemia) Qualifiers: Hyperlipidemia type: unspecified Qualified Code(s): E78.5 - Hyperlipidemia, unspecified
--- NOTE | 2018-02-17 11:38 | Cardiology Progress Note ---
Date of Encounter: 02/17/18 Time of Encounter: 09:30 Assessment and Plan (1) Chest pressure Current Visit: Yes Status: Acute Per cardiology: -Admitted with chest pressure. Different from previous angina. -Denies current chest pain/pressure. -Mildly elevated troponin. -See elevated troponin. (2) Elevated troponin Current Visit: Yes Status: Acute Per cardiology: -Troponins 0.05, 0.06, 0.05 in the setting of mild renal insufficiency, leukocytosis, hypertension (BP 180s systolic admission). -admits to chest pressure on admission, denies current. -No acute ischemic ECG changes. -TTE with LVEF preserved, no segmental wall motion abnormalities. -On asa, statin, BB. -Suspect troponin elevation demand ischemia. -Discussed with , Will plan for non-exercise nuclear stress test in am. (3) CAD (coronary artery disease) Current Visit: Yes Status: Chronic Per cardiology: -Known severe CAD s/p CABG 1995. -Last [facility] 2014 with 2/3 patent bypass grafts with collaterals feeding area of occluded graft. Medical management was recommended at that time. -On asa, statin, BB. Qualifiers: Coronary Disease-Associated Artery/Lesion type: bypass graft [place] vs. transplanted heart: [place] heart Associated angina: angina presence unspecified Qualified Code(s): I25.810 - Atherosclerosis of coronary artery bypass graft(s) without angina pectoris (4) HTN (hypertension) Current Visit: Yes Status: Chronic Per cardiology: -Known HTN, -ON BB, ARB, CCB. -Now bradycardic. -Will decrease BB, increase CCB. -Of note, on valsartan, patient reports he had checked with his pharmacy and his valsartan was not affected by recent valsartan recall. Qualifiers: Hypertension type: essential hypertension Qualified Code(s): I10 - Essential (primary) hypertension Discussion w patient/family: The assessment and plan as outlined above was discussed with the patient who expressed understanding and agreement. All questions were answered. Thank you for involving us in the care of your patient. Please call with any questions. Discussed and reviewed with . Subjective Principal diagnosis: chest pain Interval history: Patient denies chest pain. States he feels back to his baseline. Objective Vital Signs, Last 4 Hours Temp Pulse Resp BP Pulse Ox 09/16/18 10:59 97.6 F 49 16 159/68 97 General: Conversant, No Apparent Distress HEENT: Atraumatic, Normocephaly, Mucus Membranes Moist Neck: No JVD, Normal carotid pulses Cardiac: Reg Rate and Rhythm, Normal S1 and S2, No Murmur Lungs: Normal Breath Sounds, No Wheeze, Rales, Rhonchi Neuro: Alert and responsive, No focal deficits noted Abdomen: Soft, Non-Tender Skin: No rashes noted on visualized skin Musculoskeletal: No Chest Wall Tenderness Extremities: No Clubbing, No Cyanosis, No Edema, Normal Pulses Results 02/17/18 03:02 02/17/18 03:02 Lab Results Impressions Echocardiogram 02/16/18 02:24 Impressions: LVEF 55%. Normal LV chamber size, wall thickness and function. Normal right ventricular structure and function. Mild mitral regurgitation. Unable to estimate RVSP due to lack of TR jet. RV-RA gradient 16 mmHg (normal). IVC not visualized. Left Ventricular Wall Motion: Rest Echo Findings All wall segments showed normal motion. Findings: Study Quality * Technically adequate exam. ECG Findings * Sinus bradycardia. Left Ventricle * LVEF 55%. * Normal LV chamber size, wall thickness and function. Right Ventricle * Normal right ventricular structure and function. Left Atrium * Normal left atrial size. Right Atrium * Normal right atrial size. Interatrial Septum * Interatrial septum not well evaluated. Aortic Valve * Trileaflet aortic valve. * Trileaflet aortic valve with normal function. * No aortic regurgitation. * No aortic stenosis. Tricuspid Valve * Normal tricuspid valve structure and function. * Trace tricuspid regurgitation. * Estimated RVSP is RV-RA gradient 16mmHg mmHg. * Unable to estimate RVSP due to lack of TR jet. Mitral Valve * Mild mitral regurgitation. * Normal mitral valve structure. Pulmonic Valve * Normal pulmonic valve structure and function. * No pulmonic regurgitation. Aorta * Normally sized aortic root. Pericardium * The pericardium appears normal. IVC * The IVC is not well evaluated. Active Medications Amlodipine Besylate (Norvasc) 10 mg PO DAILY [facility] PRN Reason: Protocol Stop: 08/19/18 09:01 Last Admin: 02/17/18 09:11 Dose: 5 mg Aspirin (Aspirin Ec) 81 mg PO HS [facility] Stop: 08/18/18 21:01 Last Admin: 02/16/18 21:36 Dose: 81 mg Heparin Sodium (Porcine) (Heparin) 5,000 unit SQ Q8HCO [facility] Stop: 08/18/18 06:01 Last Admin: 02/17/18 05:58 Dose: 5,000 unit Methocarbamol (Robaxin) 750 mg PO DAILY [facility] Stop: 08/18/18 09:01 Last Admin: 02/17/18 09:11 Dose: 750 mg Metoprolol Succinate (Toprol Xl) 25 mg PO DAILY [facility] Stop: 08/19/18 09:01 Last Admin: 02/17/18 09:12 Dose: Not Given Multivitamins/Calcium (Thera M Plus) 1 tab PO DAILY [facility] Stop: 08/18/18 09:01 Last Admin: 02/17/18 09:12 Dose: 1 tab Primidone (Mysoline) 50 mg PO HS [facility] Stop: 08/18/18 21:01 Last Admin: 02/16/18 21:36 Dose: 50 mg Simvastatin (Zocor) 20 mg PO HS [facility] PRN Reason: Protocol Stop: 08/18/18 21:01 Last Admin: 02/16/18 21:36 Dose: 20 mg Valsartan (Diovan) 40 mg PO DAILY [facility] Stop: 08/18/18 09:01 Last Admin: 02/17/18 09:11 Dose: 40 mg Laboratory Tests 02/17/18 02/17/18 03:02 03:02 Hgb 13.4 Creatinine 1.16 - Imaging and Cardiology Chest Xray: report reviewed Stress Test: pending Echo: report reviewed Cardiac cath: report reviewed - EKG Interpretation EKG results cardiology: other (Telemetry reviewed with average HR previous 12 hours noted to be 48, SB. PVCs and PACS noted. One short run of atrial tachycardia noted.) Consult Discharge Plan - Plan Referrals: [facility] [Primary Care Provider] -
[2018-02-17] MEDS: Aspirin Enteric Coated 81 MG Tablet PO SCH (21:10)
[2018-02-17] MEDS: Primidone 50 MG TABLET PO SCH (21:10)
[2018-02-18 05:14] LABS: Basophils # 0.1 K/mcL (0.0-0.2); Basophils % 0.4 %; Eosinophils % 0.2 %; Hemoglobin 14.1 g/dL (12.9-16.9); Immature Granulocytes % 2.9 % (0-4); Lymphocytes # 1.7 K/mcL (0.6-4.6); Mean Corpuscular HGB Conc 34.4 g/dL (31.6-35.5); Mean Corpuscular Volume 90.1 fL (83.0-100.0); Mean Platelet Volume 10.9 fL (9.4-12.4); Monocytes % 7.6 %; Neutrophils # 9.9 K/mcL (1.6-8.9); Platelet Count 180 K/mcL (140-400); Red Blood Count 4.55 M/mcL (4.19-5.50); Red Cell Distribution Width 12.9 % (11.5-14.5); Segmented Neutrophils % 75.9 %
[2018-02-18] MEDS: *HR* Heparin 5,000 UNIT/ML VIAL SQ SCH ×3 (05:21→21:36)
[2018-02-18] MEDS ORDERED: Regadenoson 0.4 MG/5 ML SYRINGE IVP ONE (05:53)
[2018-02-18] MEDS: Valsartan 80 MG TABLET PO SCH (09:13)
[2018-02-18] MEDS: amLODIPine 5 MG TABLET PO SCH (09:13)
[2018-02-18] MEDS: Multivit/Ca/Min/Fe/FA 1 TAB TABLET PO SCH (09:13)
[2018-02-18] MEDS: Methocarbamol 750 MG TABLET PO SCH (09:14)
--- NOTE | 2018-02-18 12:55 | Cardiology Progress Note ---
Date of Encounter: 02/18/18 Time of Encounter: 11:30 Assessment and Plan (1) Chest pressure Current Visit: Yes Status: Acute Per cardiology: -Admitted with chest pressure. Different from previous angina. -Denies current chest pain/pressure. -Mildly elevated troponin. -See elevated troponin. (2) Elevated troponin Current Visit: Yes Status: Acute Per cardiology: -Troponins 0.05, 0.06, 0.05 in the setting of mild renal insufficiency, leukocytosis, hypertension (BP 180s systolic admission). -admits to chest pressure on admission, denies current. -No acute ischemic ECG changes. -TTE with LVEF preserved, no segmental wall motion abnormalities. -On asa, statin, BB. -Stress test resulted with perfusion abnormality noted in inferolateral wall. With stress test abnormality, recommend LHC. Risks versus benefits of LHC explained to patient and family state understanding and agreeable to proceed. Plan for LHC in am. NPO after midnight. (3) CAD (coronary artery disease) Current Visit: Yes Status: Chronic Per cardiology: -Known severe CAD s/p CABG 1995. -Last LHC 2014 with 2/3 patent bypass grafts with collaterals feeding area of occluded graft. Medical management was recommended at that time. -On asa, statin, BB. Qualifiers: Coronary Disease-Associated Artery/Lesion type: bypass graft [place] vs. transplanted heart: [place] heart Associated angina: angina presence unspecified Qualified Code(s): I25.810 - Atherosclerosis of coronary artery bypass graft(s) without angina pectoris (4) HTN (hypertension) Current Visit: Yes Status: Chronic Per cardiology: -Known HTN, -ON BB, ARB, CCB. -BP improved. -Continue to monitor. Qualifiers: Hypertension type: essential hypertension Qualified Code(s): I10 - Essential (primary) hypertension Discussion w patient/family: The assessment and plan as outlined above was discussed with the patient and family who expressed understanding and agreement. All questions were answered. Thank you for involving us in the care of your patient. Please call with any questions. Discussed and reviewed with Subjective Principal diagnosis: chest pain Interval history: Patient denies chest pain. Objective Vital Signs, Last 4 Hours Temp Pulse Resp BP Pulse Ox 02/18/18 11:08 98 F 58 17 137/55 98 General: Conversant, No Apparent Distress HEENT: Atraumatic, Normocephaly, Mucus Membranes Moist Neck: No JVD, Normal carotid pulses Cardiac: Reg Rate and Rhythm, Normal S1 and S2, No Murmur Lungs: Normal Breath Sounds, No Wheeze, Rales, Rhonchi Neuro: Alert and responsive, No focal deficits noted Abdomen: Soft, Non-Tender Skin: No rashes noted on visualized skin Musculoskeletal: No Chest Wall Tenderness Extremities: No Clubbing, No Cyanosis, No Edema, Normal Pulses Results 02/18/18 04:11 02/17/18 03:02 Lab Results Active Medications Amlodipine Besylate (Norvasc) 10 mg PO DAILY [facility] PRN Reason: Protocol Stop: 08/19/18 09:01 Last Admin: 02/18/18 09:13 Dose: 10 mg Aspirin (Aspirin Ec) 81 mg PO HS [facility] Stop: 08/18/18 21:01 Last Admin: 02/17/18 21:10 Dose: 81 mg Heparin Sodium (Porcine) (Heparin) 5,000 unit SQ Q8HCO [facility] Stop: 08/18/18 06:01 Last Admin: 02/18/18 05:21 Dose: 5,000 unit Methocarbamol (Robaxin) 750 mg PO DAILY [facility] Stop: 08/18/18 09:01 Last Admin: 02/18/18 09:14 Dose: Not Given Metoprolol Succinate (Toprol Xl) 25 mg PO DAILY [facility] Stop: 08/19/18 09:01 Last Admin: 02/17/18 09:12 Dose: Not Given Multivitamins/Calcium (Thera M Plus) 1 tab PO DAILY [facility] Stop: 08/18/18 09:01 Last Admin: 02/18/18 09:13 Dose: 1 tab Primidone (Mysoline) 50 mg PO HS [facility] Stop: 08/18/18 21:01 Last Admin: 02/17/18 21:10 Dose: 50 mg Simvastatin (Zocor) 20 mg PO HS [facility] PRN Reason: Protocol Stop: 08/18/18 21:01 Last Admin: 02/17/18 21:10 Dose: 20 mg Valsartan (Diovan) 80 mg PO DAILY [facility] Stop: 08/20/18 09:01 Last Admin: 02/18/18 09:13 Dose: 80 mg Laboratory Tests 02/17/18 02/18/18 03:02 04:11 Hgb 14.1 Creatinine 1.16 - Imaging and Cardiology Chest Xray: report reviewed Stress Test: report reviewed Echo: report reviewed Cardiac cath: report reviewed - EKG Interpretation EKG results cardiology: other (Telemetry reviewed with average HR previous 12 hours noted to be 46, SB. PVCs and PACs noted.) Consult Discharge Plan - Plan [facility]errals: [facility] [Primary Care Provider] -
--- NOTE | 2018-02-18 14:31 | Internal Med Progress Note ---
Hospitalist Progress Note - Encounter Date of Encounter: 02/18/18 Time of Encounter: 13:00 - Subjective Interval History: Patient denies shortness of breath, chest pressure, or chest pain. No further complaints. Had nuclear stress test this AM. - Exam Vitals: Temp Pulse Resp BP Pulse Ox 98 F 58 17 137/55 98 02/18/18 11:08 02/18/18 11:08 02/18/18 11:08 02/18/18 11:08 02/18/18 11:08 Exam: Vitals: Reviewed General: Well-developed white male lying comfortably in bed in no acute distress Skin: Warm and supple HEENT: Moist mucous membranes. No conjunctivae pallor. Neck: No lymphadenopathy. No JVD. No carotid bruits. No palpable thyroid. Chest: Normal thoracic expansion. Normal breath sounds. Clear to auscultation. Heart: Normal S1 & S2; rhythmic. Abdomen: Non-distended, soft and non-tender to palpation. No peritoneal reaction. Extremities: No clubbing, cyanosis or edema. No calf tenderness. Normal distal pulses. Neurological: Awake, alert and oriented to person, place and time. No focal deficits. Psych: Affect appropriate. - Assessment and Plan (1) Chest pain Current Visit: Yes Status: Acute Assessment and Plan: No further chest pain or pressure. No SOB - Three troponin 0.05-0.06-0.05 - Echocardiogram unremarkable - Nuclear stress test positive, plan for [facility] tomorrow. (2) CAD (coronary artery disease) Current Visit: Yes Status: Chronic Assessment and Plan: keep on ASA and statin. Metoprolol decreased to 25 mg po daily b/o sinus bradycardia. (3) PAD (peripheral artery disease) Current Visit: Yes Status: Acute Assessment and Plan: Stable with no signs of insufficiency at this time. Remains on antiplatelet and statin therapy. (4) HTN (hypertension) Current Visit: Yes Status: Chronic Assessment and Plan: Amlodipine increased to 10mg po daily per cardio. Metoprolol XL decreased to 25 mg po daily per cardio. Valsartan increased to 80mg po daily since this AM because BP is still high. (5) HLD (hyperlipidemia) Current Visit: Yes Status: Acute Assessment and Plan: Continue statin therapy. LDL 94 (6) DVT prophylaxis Current Visit: Yes Status: Acute Assessment and Plan: SubQ heparin indicated. DVT Prophylaxis: Heparin SC - Time Spent with Patient Total time spent is greater than 50% in coordination of care (as documented) at patient's floor/unit and/or counseling patient: 30 min 25 - 35 minutes Plan of Care Discussed with: patient Internal Medicine: Result - Labs CBC & Chem 7: 02/18/18 04:11 02/17/18 03:02 Labs: Short CBC 02/18/18 Range/Units 04:11 WBC 13.0 H (4.3-11.1) K/mcL Hgb 14.1 (12.9-16.9) g/dL Hct 41.0 (37.5-50.1) % Plt Count 180 (140-400) K/mcL Neutrophils # 9.9 H (1.6-8.9) K/mcL - ABG Interpretation ABG results: PT/INR, D-dimer PT 10.8 Seconds (9.4-12.1) 02/16/18 00:01 Consult Discharge Plan - Plan Referrals: [facility] [Primary Care Provider] - (1) Chest pain Qualifiers: Chest pain type: chest pain due to myocardial ischemia Ischemic chest pain type: unspecified angina pectoris type Qualified Code(s): I25.9 - Chronic ischemic heart disease, unspecified (2) CAD (coronary artery disease) Qualifiers: Coronary Disease-Associated Artery/Lesion type: bypass graft [place] vs. transplanted heart: [place] heart Associated angina: angina presence unspecified Qualified Code(s): I25.810 - Atherosclerosis of coronary artery bypass graft(s) without angina pectoris (4) HTN (hypertension) Qualifiers: Hypertension type: essential hypertension Qualified Code(s): I10 - Essential (primary) hypertension (5) HLD (hyperlipidemia) Qualifiers: Hyperlipidemia type: unspecified Qualified Code(s): E78.5 - Hyperlipidemia, unspecified
[2018-02-18] MEDS: Metoprolol XL (24 HR) Succ 25 MG TAB.ER.24H PO SCH (14:46)
[2018-02-18] MEDS: Aspirin Enteric Coated 81 MG Tablet PO SCH (21:36)
[2018-02-18] MEDS: Primidone 50 MG TABLET PO SCH (21:36)
[2018-02-19] MEDS: *HR* Heparin 5,000 UNIT/ML VIAL SQ SCH ×3 (06:08→22:15)
[2018-02-19 06:18] LABS: Hematocrit 41.5 % (37.5-50.1); Hemoglobin 14.3 g/dL (12.9-16.9); Mean Corpuscular HGB Conc 34.5 g/dL (31.6-35.5); Mean Corpuscular Hemoglobin 30.4 pg (28.0-33.3); Mean Corpuscular Volume 88.1 fL (83.0-100.0); Mean Platelet Volume 10.4 fL (9.4-12.4); Nucleated Red Blood Cells 0.2 /100 WBC (0); Platelet Count 195 K/mcL (140-400); Red Blood Count 4.71 M/mcL (4.19-5.50); Red Cell Distribution Width 12.9 % (11.5-14.5)
--- NOTE | 2018-02-19 06:33 | Electrocardiograph Report ---
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
[2018-02-19 06:37] LABS: BUN/Creatinine Ratio 24 (6-26); Blood Urea Nitrogen 28 mg/dL (8-23); Calcium 9.3 mg/dL (8.6-10.3); Carbon Dioxide 24 mEq/L (23-29); Chloride 107 mEq/L (98-107); Glucose 131 mg/dL (70-105); Osmolality,Calculated 293 (280-300); Potassium 4.6 mEq/L (3.5-5.1); Sodium 138 mEq/L (136-145); eGFR For Non-African Americans > 60 (> 60)
--- NOTE | 2018-02-19 06:44 | Electrocardiograph Report ---
[address] [address] Test Date: 2018-02-16 Pat Name: Joe Boyd Department: 111 Room: 2N0 Gender: M Advertising Director: RAW : 1945 Requested By: Leisa Townsend Order Number: [id number] Reading MD: Adrian Mcfadden Measurements Intervals [place] Rate: 56 P: DC: 0 QRS: -9 QRSD: 101 T: 47 QT: 404 QTc: 396 Interpretive Statements SINUS RHYTHM BASELINE ARTIFACT COMPLICATES INTERPRETATION RECOMMEND REPEAT ECG Electronically Signed On 02-19-2018 6:43:18 EDT by Adrian Mcfadden
[2018-02-19 06:46] LABS: Eosinophils # 0.3 K/mcL (0.0-0.6); Lymphocytes # 3.2 K/mcL (0.6-4.6); Neutrophils # 7.9 K/mcL (1.6-8.9)
[2018-02-19 06:47] LABS: Platelet Estimate Normal (Normal)
[2018-02-19] MEDS: Methocarbamol 750 MG TABLET PO SCH (08:14)
[2018-02-19] MEDS: Valsartan 80 MG TABLET PO SCH (08:14)
[2018-02-19] MEDS: Multivit/Ca/Min/Fe/FA 1 TAB TABLET PO SCH (08:14)
[2018-02-19] MEDS: amLODIPine 5 MG TABLET PO SCH (08:14)
[2018-02-19] MEDS: Metoprolol XL (24 HR) Succ 25 MG TAB.ER.24H PO SCH (08:15)
--- NOTE | 2018-02-19 09:11 | Event Note ---
Date of Encounter: 02/19/18 Time of Encounter: 09:09 - Cardiology Event Note Plan for LHC today. RIsks versus benefits of LHC explained to patient and family. Patient agreeable to proceed. Patient's LHC mohit most likely be this afternoon. Per Dr.Jennifer Blue, ok for liquid breakfast, RN notified. Further recommendations pending LHC.
--- NOTE | 2018-02-19 12:02 | Internal Med Progress Note ---
Hospitalist Progress Note - Encounter Date of Encounter: 02/19/18 Time of Encounter: 12:00 - Subjective Interval History: Patient evaluated at bedside, denies chest pain, shortness of breath. No abdominal pain, nausea or vomiting. - Exam Vitals: Temp Pulse Resp BP Pulse Ox 97.5 F L 50 16 141/64 97 02/19/18 07:37 02/19/18 07:37 02/19/18 07:37 02/19/18 07:37 02/19/18 07:37 Exam: General: Alert and oriented 3. No acute distress. Skin:Normal color, no rash, no lesions. HEENT:EOM, pupils equal, round and reactive. Cardiovascular: RRR, Normal S1 & S2, no rubs, murmurs or gallops. JVD about 6cm. Lungs: Clear to auscultation bilaterally, no wheezes or crackles. Abdomen: Soft, non-tender, no rigidity. NABS in all 4 quadrants. Extremities: no edema or tenderness. Strength is 5 out of 5 in the upper and lower extremity. Neurological:Normal cognition and motor skills. Rest of the physical exam is non contributory - Assessment and Plan (1) Chest pain Current Visit: Yes Status: Acute Assessment and Plan: Patient denies chest pain. Plan Is scheduled for [facility] today Continue metoprolol 25mg/PO daily On valsartan 80 mg by mouth daily (2) CAD (coronary artery disease) Current Visit: Yes Status: Chronic Assessment and Plan: Significant coronary artery disease, with multiple stent placed. And CABG 17 years ago Plan: Continue aspirin 81 mg, and simvastatin 20 mg by mouth daily Patient not on Plavix due to allergy to the medication. (3) PAD (peripheral artery disease) Current Visit: Yes Status: Acute Assessment and Plan: On aspirin. (4) HTN (hypertension) Current Visit: Yes Status: Chronic Assessment and Plan: Blood pressure well controlled. Plan Continue amlodipine 10 mg by mouth daily. Patient on a beta jamie and a ARB (5) HLD (hyperlipidemia) Current Visit: Yes Status: Acute Assessment and Plan: Continue simvastatin (6) DVT prophylaxis Current Visit: Yes Status: Acute Assessment and Plan: On heparin 5000 units every 8 hours subcutaneous for DVT prophylaxis. (7) Leukocytosis Current Visit: Yes Status: Acute Assessment and Plan: Elevated WBC, which has been trending down over the past couple of days. With no signs of active infection. Possibly reactive leukocytosis. Plan We will continue to monitor. No need for antibiotic coverage at this time. - Summary of Assessment and Plan Summary of Assessment and Plan: Patient is scheduled for C. Potential discharge tomorrow following LHC results. - Time Spent with Patient Total time spent is greater than 50% in coordination of care (as documented) at patient's floor/unit and/or counseling patient: Greater than 35 minutes Plan of Care Discussed with: patient (the family and nurse.) Internal Medicine: Result - Labs CBC & Chem 7: 02/19/18 05:16 02/19/18 05:16 Labs: Short CBC 02/19/18 Range/Units 05:16 WBC 12.3 H (4.3-11.1) K/mcL Hgb 14.3 (12.9-16.9) g/dL Hct 41.5 (37.5-50.1) % Plt Count 195 (140-400) K/mcL Neutrophils # 7.9 (1.6-8.9) K/mcL BMP 02/19/18 05:16 Sodium 138 Potassium 4.6 Chloride 107 Carbon Dioxide 24 BUN 28 H Creatinine 1.19 Glucose 131 H Calcium 9.3 - ABG Interpretation ABG results: PT/INR, D-dimer PT 10.8 Seconds (9.4-12.1) 02/16/18 00:01 - Impressions Impressions Chest CT 02/16/18 09:15 IMPRESSION: 1. No acute intrathoracic abnormality to explain the patient's presenting dry cough. 2. Mild emphysema. 3. There is a 6 x 6 mm left posterior lung base nodule, indeterminate. RECOMMENDATIONS: Fleischner Society guidelines for follow-up and management of incidentally detected pulmonary nodules: Single Solid Nodule: Nodule size equals 6-8 mm In a low-risk patient, CT at 6-12 months, then consider CT at 18-24 months. In a high-risk patient, CT at 6-12 months, then CT at 18-24 months. - Low risk patients include individuals with minimal or absent history of smoking and other known risk factors. - High risk patients include individuals with a history or smoking or known risk factors. Radiology 2017 http://pubs.rsna.org/doi/full/10.1148/radiol.[email or web address] D/ 02/16/2018 10:43:38 Kamlesh Balbuena MD / [email or web address] Interpreting Provider: Kamlesh Balbuena MD Consult Discharge Plan - Plan Referrals: [facility] [Primary Care Provider] - (1) Chest pain Qualifiers: Chest pain type: chest pain due to myocardial ischemia Ischemic chest pain type: unspecified angina pectoris type Qualified Code(s): I25.9 - Chronic ischemic heart disease, unspecified (2) CAD (coronary artery disease) Qualifiers: Coronary Disease-Associated Artery/Lesion type: bypass graft [place] vs. transplanted heart: [place] heart Associated angina: angina presence unspecified Qualified Code(s): I25.810 - Atherosclerosis of coronary artery bypass graft(s) without angina pectoris (4) HTN (hypertension) Qualifiers: Hypertension type: essential hypertension Qualified Code(s): I10 - Essential (primary) hypertension (5) HLD (hyperlipidemia) Qualifiers: Hyperlipidemia type: unspecified Qualified Code(s): E78.5 - Hyperlipidemia, unspecified (7) Leukocytosis Qualifiers: Leukocytosis type: unspecified Qualified Code(s): D72.829 - Elevated white blood cell count, unspecified
[2018-02-19] MEDS ORDERED: Heparin 1,000 UNITS/500 mL 500 ML ONE (14:35)
[2018-02-19] MEDS ORDERED: *HR* Heparin 10,000 UNIT/10 ML VIAL ONE (14:35)
[2018-02-19] MEDS ORDERED: Nitroglycerin 1,000 MCG/10 ML VIAL IV ONE (14:35)
[2018-02-19] MEDS ORDERED: ISOVUE-370 200 ML INFUS..BTL IV ONE (14:35)
[2018-02-19] MEDS ORDERED: 0.9 % Sodium Chloride 1,000 ML ONE ×2 (14:35→15:16)
--- NOTE | 2018-02-19 15:00 | Pre-Sedation Evaluation ---
Pre-sedation evaluation - Pre-sedation checklist Date of procedure: 02/19/18 Procedure: [facility] Recent Vitals: Last Vital Signs Temp 97.9 F 02/19/18 12:00 Pulse 69 02/19/18 12:00 Resp 16 02/19/18 12:00 BP 168/70 02/19/18 12:00 Pulse Ox 97 02/19/18 12:00 H&P (including ROS) documented in medical record: Yes Previous reaction to sedatives/anesthetics: No Dietary Status: NPO 6 hours prior to procedure Airway Assessment: Patient can open mouth completely, TMJ function normal, Micrognathia (under-bite, receding chin) absent, Neck with adequate range of motion Dentition: No loose teeth or bridges Possible difficult airway: No ASA Classification *see protocol: CLASS II-Mild systemic disease Plan of Care: Pt appropriate candidate for procedure/moderate/conscious sedation , Risks/benefits of procedure/sedation discussed w/ patient/family Cardiac Registry (Cardio Only) - Functional Capacity Functional Capacity: < 4 METS - Clincal Frailty Scale Clinical Frailty Scale: Managing Well
[2018-02-19] MEDS ORDERED: *HR* Bivalirudin 250 MG VIAL IVC ONE (15:14)
[2018-02-19] MEDS ORDERED: *HR* Midazolam HCl 2 MG/2 ML VIAL ONE (15:15)
[2018-02-19] MEDS ORDERED: *HR* FentaNYL (PF) 100 MCG/2 ML VIAL ONE (15:15)
--- NOTE | 2018-02-19 16:29 | Invasive Diagnostic Lab Proc ---
Name: Joe Boyd Date of Study: 02/19/2018 Date: 1945 Ht: 70.1in Medical Record#: [id number] Age: 72 Wt: 182.98lb Gender: Male BSA: 2.01 Order #: [id number] BMI: 26.2 Physicians Procedure Physician: Seble Blue MD, [facility] Referring MD: Referring MD: Staff Name Position [facility] Monitor 03:06 PM Fiona Belle RN Credit Control Manager 03:06 PM Wendi Spear RT Scrub 03:06 PM Félix Quezada RN Nurse 03:43 PM Indications Indication Abnormal Test - Stress Procedures Performed Procedure L HRT ART/GRFT ANGIO Pre-Procedure Checklist Informed consent is complete signed and on chart. H&P is on chart. ID band is on and ID verified with patient. Patient NPO for procedure The procedure was described for the patient and questions were answered. ECG is on chart. Plan of Care Patient will tolerate the procedure without complications. Adequate level of comfort will be maintained. Hemodynamics will remain stable Patient will recover from procedure without complications. Respiratory function will be maintained. Cardiac rhythm will remain stable. Patient temperature will be maintained. Patient and/or family have verbalized understanding of the procedure. Patient Education Chief Complaint/Reason for Test: Cardiac Cath Developmental Category: Geriatric (65+ years) Developmentally Appropriate for Age: Yes Learning Barriers: None Education Needs: Procedure Education Method: Verbal Information Taught: Cardiac Cath Educational Evaluation: Able to repeat information Intravenous Access Time IV Size Location DC'd Fluid/Drip Rate Units RN 20g 1 06/07" Patent On Arrival 0.9NaCl ml/hr Allergies Sulfa (Sulfonamide Antibiotics) clopidogrel tramadol Vital Signs Time BP (mmHg) HR (bpm) O2 Sat. RR (bpm) LOC 03:12 PM / % 5 = Fully awake and oriented or at pre-proc level 03:12 PM / % 4 = Oriented but drowsy 03:27 PM / % 5 = Fully awake and oriented or at pre-proc level 03:14 PM 196 / 86 56 100 % 17 03:18 PM 186 / 75 51 100 % 16 03:23 PM 160 / 74 54 100 % 13 03:28 PM 161 / 67 55 100 % 13 03:33 PM 153 / 66 53 100 % 15 03:38 PM 146 / 65 52 100 % 14 03:44 PM 144 / 69 51 100 % Procedural Medications Time Medication Dose Units Method Given By 03:11 PM Oxygen 2 L/min nasal cannula Fiona Belle RN 03:20 PM Versed 2 mg Intravenous Fiona Belle RN 03:20 PM Fentanyl 50 mcg Intravenous Fiona Belle RN 03:23 PM Lidocaine 2% 19 ml Subcutaneous Seble Blue MD, [facility] ASA Classification: CLASS II- Mild systemic disease (i.e. well-controlled diabetes, hypertension, asthma, cigarette smoking) Casey Score Preprocedure Postprocedure Activity 2- Moves 4 extremities sustained head lift Activity 2- Moves 4 extremities sustained head lift Circulation 2- SBP +/= 20 points of pre-anesthetic level Circulation 2- SBP +/= 20 points of pre-anesthetic level Consciousness 2- Awake and alert oriented x 3 Consciousness 2- Awake and alert oriented x 3 O2 Saturation 2- Able to maintain O2 satruation of 92% on room air O2 Saturation 2- Able to maintain O2 satruation of 92% on room air Respiratory 2- Able to deep breathe and cough well Respiratory 2- Able to deep breathe and cough well Total Score 10 Total Score 10 Contrast Agent: Isovue Diagnostic Contrast: 79 ml Total Contrast: 79 ml Fluoro Dose: 3239 mGy Procedure Log Time Note Enter By 03:06 PM [facility] arrived [facility] lab head 2 at 15:05 [facility] 03:06 PM Carmen Linton RN Position: Monitor Time in: 15:06 [facility] 03:06 PM Fiona Belle RN Position: Credit Control Manager Time in: 15:06 mm 03:06 PM Wendi Spear Position: Scrub Time [facility]: 15:06 [facility] 03:06 PM Patient charges- Angio tray pack, Navilyst 3mm J, Pulse Oximetry and ACIST tubing and transducer [facility] 03:06 PM Case Delayed No oumm 03:10 PM Physician arrived 15:10 [facility] 03:10 PM Meet and greet completed [facility] 03:10 PM Sign in performed according to hospital policy. [facility] 03:10 PM Procedure start 15:10 [facility] 03:11 PM Time: 15:11 Oxygen on at 2 L/min per nasal cannula by Fiona Belle RN taylor 03:11 PM CathStat 03:12 PM Time: 15:12 Patient comfortable and pain free: Yes 03:12 PM Time: 15:12LOC: 5 = Fully awake and oriented or at pre-proc level 03:12 PM Vitals capture started with the following parameters, Patient=Adult, Interval=5 min, Initial Xaayxnic=784 mmHg, Deflation Rate=5 mmHg, Cuff placed on Right Arm 03:14 PM HR=56 bpm, IPLM=846/86 mmhg, BcS0=742.0 %, Resp=17 B/min 03:15 PM ASA Class CLASS II- Mild systemic disease (i.e. well-controlled diabetes, hypertension, asthma, cigarette smoking) 03:15 PM Recorded ECG: HR=54 Condition=Condition 1 03:18 PM HR=51 bpm, WLXS=280/75 mmhg, RqD5=028.0 %, Resp=16 B/min, EtCO2=20 mmHg, Comment=sr 03:20 PM Time: 15:20 Versed 2 mg Intravenous Given by Fiona Belle RN bibiemma 03:20 PM Time: 15:20 Fentanyl 50 mcg Intravenous Given by Fiona Belle RN bibiemma 03:21 PM Pressure channel 1 zeroed. 03:22 PM Time out performed according to hospital policy 03:23 PM Time: 15:23 19 ml Lidocaine 2% to right groin Subcutaneous Given by Seble Blue MD, [facility] 03:23 PM HR=54 bpm, TYAK=127/74 mmhg, KnV0=823.0 %, Resp=13 B/min 03:24 PM Access obtained by percutaneous puncture. 5Fr 10cm Terumo [place] sheath placed in right Femoral artery. [id number] mm 03:24 PM 0.035 145cm Navilyst 3mmJ wire [id number] 03:24 PM 5Fr FL 4 catheter inserted over the wire [facility] 03:24 PM wire removed [facility] 03:25 PM Recorded Pressure: Ao, HR=55, Condition=Condition 1 (Aorta) Ao 154/67/100 03:25 PM LCA angiography performed in multiple views. 03:26 PM Catheter removed 03:26 PM 5Fr FR 4 catheter inserted over the wire [facility] 03:27 PM Time: 15:12 Patient comfortable and pain free: Yes [facility] 03:27 PM Time: 15:12LOC: 4 = Oriented but drowsy [facility] 03:28 PM Recorded Pressure: Ao, HR=58, Condition=Condition 1 (Aorta) Ao 143/72/102 03:28 PM RCA angiography performed [facility] multiple [facility]. [facility] 03:28 PM SVG to the RPDA angio performed in multiple views. tsou[facility]ers 03:28 PM Recorded Pressure: Ao, HR=55, Condition=Condition 1 (Aorta) Ao 142/71/101 03:28 PM HR=55 bpm, LXZF=738/67 mmhg, OqZ7=382.0 %, Resp=13 B/min, Comment=sb 03:28 PM Coronary Dominance[facility] [facility] 03:29 PM 5Fr IM catheter inserted over the wire [id number] [facility] 03:29 PM Left JASVIR to the LAD angio performed in multiple views. [facility] 03:31 PM Recorded Pressure: Ao, HR=53, Condition=Condition 1 (Aorta) Ao 139/65/95 03:[address] [facility] 03:33 PM 5Fr Pigtail catheter inserted over the wire [facility] 03:33 PM Catheter selectively placed in left ventricle [facility] 03:33 PM Bolus angiogram of left Ventricle complete: 8 ml/sec for a total of 24 mls tsouemma 03:33 PM HR=53 bpm, PHZN=668/66 mmhg, TbW4=380.0 %, Resp=15 B/min, EtCO2=32 mmHg, Comment=sb 03:34 PM Pressure channel 1 zeroed. 03:34 PM Recorded Pressure: LV, HR=73, Condition=Condition 1 (Left Ventricle) LV 151/33/27 03:34 PM Recorded Pressure: LV, Ao, HR=63, Condition=Condition 1 (Left Ventricle) LV 113/26/11, (Aorta) Ao 113/47/77 03:35 PM [facility] 03:[facility] PM Bolus angiogram of right Femoral complete: 2 ml/sec for a total of 4 mls tsoummers 03:37 PM Procedure completed at 15:37 02/19/2018 tsou[facility]ers 03:37 PM Did you address DINORAH flow and Dominance? Yes tsoummers 03:38 PM HR=52 bpm, KIMH=967/65 mmhg, WhR6=184.0 %, Resp=14 B/min, EtCO2=31 mmHg, Comment=sb 03:39 PM Sign out completed: Radiation Dose 251.05 mGy, 3238.63 cGy/cm2 Fluoro Time: 4.1 Isovue 370 - 200ml contrast 79 ml given by Seble Blue MD, [facility]. Complications: NoneCardiac Rehab Consult needed: NoConfirmed administered medications: Yes tsoummers 03:39 PM Isovue 370 - 200ml,1 Bottle(s) used. tsoummers 03:39 PM Estimated Blood Loss: less than 20cc tsoummers 03:39 PM Post ECG Sinus Bradycardia tsou[facility]ers 03:39 PM Post Blood Pressure 146/65 ts[facility] 03:39 PM Information taught Cardiac Cath and Mynx tsou[facility]ers 03:39 PM Education needs Procedure, Plan of Care, and Responsibilities of Patient in Care ts[facility] 03:39 PM Learning barriers :None tsou[facility]ers 03:39 PM Education Methods Verbal ts[facility]ers 03:39 PM Education evaluation Able to repeat information ts[facility]ers 03:39 PM Plavix, Effient or Brilinta given No tsoummers 03:39 PM Family placed in consult room. [facility] 03:39 PM Complications: None tsou[facility]ers 03:40 PM Arterial sheath pulled, Mynx closure device used and was Successful [id number] S/N. tsoummers 03:42 PM 15:42 Post Pulses Bilateral DP 1+ tsoummers 03:42 PM Report given to Helen SIDDIQI Pt taken to 2NE Room #20. 15:42 tsou[facility]ers 03:42 PM Time: 15:27LOC: 5 = Fully awake and oriented or at pre-proc level tsoummers 03:42 PM Time: 15:27 Patient comfortable and pain free: Yes tsoummers 03:43 PM Félix Quezada RN Position: Nurse Time in: 15:43 [facility] 03:44 PM HR=51 bpm, ZMYL=856/69 mmhg, IzZ4=889.0 % 03:47 PM Lesion found in Proximal RCA. Pre Stenosis: 99 Pre DINORAH Flow: tsoummers 03:47 PM Lesion found in Mid RCA. Pre Stenosis: 100 Pre DINORAH Flow: tsoummers 03:47 PM Lesion found in Distal LMCA. Pre Stenosis: 30 Pre DINORAH Flow: tsoummers 03:47 PM Lesion found in Proximal LAD. Pre Stenosis: 90 Pre DINORAH Flow: tsoummers 03:47 PM Lesion found in Mid LAD. Pre Stenosis: 100 Pre DINORAH Flow: tsoummers 03:48 PM Lesion found in Proximal Circumflex. Pre Stenosis: 30 Pre DINORAH Flow: tsoummers 03:48 PM Lesion found in Mid Circumflex. Pre Stenosis: 100 Pre DINORAH Flow: tsoummers 03:48 PM Left Main Coronary Artery with 30% stenosis tsoummers 03:48 PM Right Coronary, Right Posterior Descending Arteries with Right Posterolateral and Acute Marginal branches with 100 % stenosis. If graft is supplying this area, 0 % stenosis tsoummers 03:48 PM Proximal Left Anterior Descending Coronary Artery with 90% stenosis. If graft is supplying this territory, 0 % stenosis. tsoummers 03:48 PM Mid/Distal Left Anterior Descending Coronary Artery and diagonal branches with 100% stenosis. If graft is supplying this area, 0 % stenosis tsoummers 03:48 PM Circumflex, Obtuse Marginal, Left Posterior Descending, and Left Posterolateral Coronary Arteries with 100 % stenosis. If graft is supplying this area, 0 % stenosis tsoummers 03:53 PM Site status No bleeding/hematoma - Rt Groin as reported by Wendi Spear RT at 15:53 tsoummers 03:53 PM Opsite applied tsoummers 03:53 PM Patient out of room: 15:53 tsoummers Complications Complication None Hemodynamics Pressures Site Systolic/A Wave Diastolic/V Wave Mean AO 154 67 100 AO 143 72 102 AO 142 71 101 AO 139 65 95 LV 151 33 27 LV 113 26 11 AO 113 47 77 Post Procedure Information Blood Pressure: 146/65 mmHg Rhythm: Sinus Bradycardia Post procedural instructions were given Closure Device Time Device Success/Fail 02/19/2018 3:40:00 PM MynxGrip Successful Site Checks Time Location Status Staff Sheath In? Note 03:53 PM Rt Groin No bleeding/hematoma Wendi Spear RT Pulses Time Site Pre-Procedure Post-Procedure Note Bilateral DP & PT 1+ Bilateral radial 2+ 3:42:00 PM Bilateral DP 1+ Updated by Carmen Linton RN on 02/19/2018 4:22:02 PM electronically signed on 02/19/2018 4:22:44 PM with status of Final
[2018-02-19] MEDS: Primidone 50 MG TABLET PO SCH (22:15)
[2018-02-19] MEDS: Aspirin Enteric Coated 81 MG Tablet PO SCH (22:15)
[2018-02-20] MEDS: *HR* Heparin 5,000 UNIT/ML VIAL SQ SCH (06:35)
[2018-02-20 06:37] VITALS: BP 147/69
[2018-02-20 07:15] LABS: Hematocrit 43.1 % (37.5-50.1); Hemoglobin 15.1 g/dL (12.9-16.9); Mean Corpuscular Hemoglobin 31.5 pg (28.0-33.3); Mean Corpuscular Volume 89.8 fL (83.0-100.0); Mean Platelet Volume 10.6 fL (9.4-12.4); Nucleated Red Blood Cells 0.1 /100 WBC (0); Platelet Count 191 K/mcL (140-400); Red Cell Distribution Width 12.7 % (11.5-14.5)
[2018-02-20 07:51] LABS: BUN/Creatinine Ratio 27 (6-26); Blood Urea Nitrogen 32 mg/dL (8-23); Calcium 9.2 mg/dL (8.6-10.3); Carbon Dioxide 20 mEq/L (23-29); Chloride 107 mEq/L (98-107); Glucose 113 mg/dL (70-105); Magnesium 2.3 mg/dL (1.6-2.6); Osmolality,Calculated 290 (280-300); Potassium 5.1 mEq/L (3.5-5.1); Sodium 136 mEq/L (136-145); eGFR For Non-African Americans > 60 (> 60)
[2018-02-20] MEDS: Metoprolol XL (24 HR) Succ 25 MG TAB.ER.24H PO SCH (08:19)
[2018-02-20] MEDS: amLODIPine 5 MG TABLET PO SCH (08:19)
[2018-02-20] MEDS: Methocarbamol 750 MG TABLET PO SCH (08:19)
[2018-02-20] MEDS: Valsartan 80 MG TABLET PO SCH (08:19)
[2018-02-20] MEDS: Multivit/Ca/Min/Fe/FA 1 TAB TABLET PO SCH (08:19)
[2018-02-20 09:13] LABS: Lymphocytes # 3.5 K/mcL (0.6-4.6); Monocytes # 0.6 K/mcL (0.0-1.3); Neutrophils # 11.1 K/mcL (1.6-8.9)
[2018-02-20 09:14] LABS: Platelet Estimate Normal (Normal)
--- NOTE | 2018-02-20 10:46 | Cardiology Progress Note ---
Date of Encounter: 02/20/18 Time of Encounter: 08:30 Assessment and Plan (1) Chest pressure Current Visit: Yes Status: Acute Per cardiology: -Admitted with chest pressure. Different from previous angina. -Denies current chest pain/pressure. -Mildly elevated troponin. -See elevated troponin. (2) Elevated troponin Current Visit: Yes Status: Acute Per cardiology: -Troponins 0.05, 0.06, 0.05 in the setting of mild renal insufficiency, leukocytosis, hypertension (BP 180s systolic admission). -admits to chest pressure on admission, denies current. -No acute ischemic ECG changes. -TTE with LVEF preserved, no segmental wall motion abnormalities. -On asa, statin, BB. -Stress test resulted with perfusion abnormality noted in inferolateral wall. -[facility] yesterday with preliminary report reviewed with similar appearance to 2015 [facility], no intervention performed. -Cardiology will sign off. WIll arrange outpatient follow up. OF note, intolerant to imdur due to headaches. Unable to take ranexa due to drug interaction with seizure medication. (3) CAD (coronary artery disease) Current Visit: Yes Status: Chronic Per cardiology: -Known severe CAD s/p CABG 1995. -Last [facility] 2014 with 2/3 patent bypass grafts with collaterals feeding area of occluded graft. Medical management was recommended at that time. -On asa, statin, BB. Qualifiers: Coronary Disease-Associated Artery/Lesion type: bypass graft [place] vs. transplanted heart: [place] heart Associated angina: angina presence unspecified Qualified Code(s): I25.810 - Atherosclerosis of coronary artery bypass graft(s) without angina pectoris (4) HTN (hypertension) Current Visit: Yes Status: Chronic Per cardiology: -Known HTN, -ON BB, ARB, CCB. -BP improved. -Continue to monitor in outpatient setting. Qualifiers: Hypertension type: essential hypertension Qualified Code(s): I10 - Essential (primary) hypertension Discussion w patient/family: The assessment and plan as outlined above was discussed with the patient and family who expressed understanding and agreement. All questions were answered. Thank you for involving us in the care of your patient. Please call with any questions. Discussed and reviewed with Subjective Principal diagnosis: chest pain Interval history: Patient denies chest pain. S/p LHC yesterday without intervention. Denies issues using right leg or walking. Objective Vital Signs Temperature 97.8 F 02/15/18 22:52 Pulse Rate 65 02/15/18 22:52 Respiratory Rate 16 02/15/18 22:52 Blood Pressure 187/69 02/15/18 22:52 O2 Sat by Pulse Oximetry 98 02/15/18 22:52 Temperature 97.7 F 02/20/18 06:35 Pulse Rate 48 02/20/18 06:35 Respiratory Rate 15 02/20/18 06:35 Blood Pressure 147/69 02/20/18 06:35 O2 Sat by Pulse Oximetry 99 02/20/18 06:35 Oxygen Delivery Oxygen Delivery Room Air General: Conversant, No Apparent Distress HEENT: Atraumatic, Normocephaly, Mucus Membranes Moist Neck: No JVD, Normal carotid pulses Cardiac: Reg Rate and Rhythm, Normal S1 and S2, No Murmur Lungs: Normal Breath Sounds, No Wheeze, Rales, Rhonchi Neuro: Alert and responsive, No focal deficits noted Abdomen: Soft, Non-Tender Skin: No rashes noted on visualized skin, Other (Right groin access site without hematoma or ecchymosis. ) Musculoskeletal: No Chest Wall Tenderness Extremities: No Clubbing, No Cyanosis, No Edema, Normal Pulses Results 02/20/18 06:53 02/20/18 06:53 Lab Results Active Medications Amlodipine Besylate (Norvasc) 10 mg PO DAILY [facility] PRN Reason: Protocol Stop: 08/19/18 09:01 Last Admin: 02/20/18 08:19 Dose: 10 mg Aspirin (Aspirin Ec) 81 mg PO HS GISSELL Stop: 08/18/18 21:01 Last Admin: 02/19/18 22:15 Dose: 81 mg Heparin Sodium (Porcine) (Heparin) 5,000 unit SQ Q8HCO GISSELL Stop: 08/18/18 06:01 Last Admin: 02/20/18 06:35 Dose: 5,000 unit Methocarbamol (Robaxin) 750 mg PO DAILY GISSELL Stop: 08/18/18 09:01 Last Admin: 02/20/18 08:19 Dose: 750 mg Metoprolol Succinate (Toprol Xl) 25 mg PO DAILY GISSELL Stop: 08/19/18 09:01 Last Admin: 02/20/18 08:19 Dose: 25 mg Multivitamins/Calcium (Thera M Plus) 1 tab PO DAILY [facility] Stop: 08/18/18 09:01 Last Admin: 02/20/18 08:19 Dose: 1 tab Primidone (Mysoline) 50 mg PO HS GISSELL Stop: 08/18/18 21:01 Last Admin: 02/19/18 22:15 Dose: 50 mg Simvastatin (Zocor) 20 mg PO HS G[facility]SELL PRN Reason: Protocol Stop: 08/18/18 21:01 Last Admin: 02/19/18 22:15 Dose: 20 mg Valsartan (Diovan) 80 mg PO DAILY G[facility]LL Stop: 08/20/18 09:01 Last Admin: 02/20/18 08:19 Dose: 80 mg Laboratory Tests 02/20/18 02/20/18 06:53 06:53 Hgb 15.1 Creatinine 1.18 - Imaging and Cardiology Chest Xray: report reviewed Stress Test: report reviewed Echo: report reviewed Cardiac cath: report reviewed - EKG Interpretation EKG results cardiology: other (Telemetry reviewed with average HR previous 12 hours noted to be 50, SB. PVCs and PACs noted.) Consult Discharge Plan - Plan [facility]errals: [facility] [Primary Care Provider] -
--- NOTE | 2018-02-20 11:46 | Discharge Summary ---
- NOTES TO OUTPATIENT PROVIDER Notes to Outpatient Provider: CBC within 1-2 weeks. To follow WBC count. Orders not resulted at time of discharge: Pending orders 02/18/18 06:00 NM sivan perf SPECT multi [NM] Routine 02/19/18 08:54 CL Cardiac Catheterization [CL] Routine Date of Encounter: 02/20/18 Time of Encounter: 11:44 - Discharge Diagnosis (1) Chest pain Priority: Primary Status: Resolved Qualifiers: Chest pain type: chest pain due to myocardial ischemia Ischemic chest pain type: unspecified angina pectoris type Qualified Code(s): I25.9 - Chronic ischemic heart disease, unspecified (2) CAD (coronary artery disease) Priority: Secondary Status: Chronic Qualifiers: Coronary Disease-Associated Artery/Lesion type: bypass graft [place] vs. transplanted heart: [place] heart Associated angina: angina presence unspecified Qualified Code(s): I25.810 - Atherosclerosis of coronary artery bypass graft(s) without angina pectoris (3) PAD (peripheral artery disease) Priority: Secondary Status: Chronic (4) HTN (hypertension) Priority: Secondary Status: Chronic Qualifiers: Hypertension type: essential hypertension Qualified Code(s): I10 - Essential (primary) hypertension (5) HLD (hyperlipidemia) Priority: Secondary Status: Chronic Qualifiers: Hyperlipidemia type: unspecified Qualified Code(s): E78.5 - Hyperlipidemia , unspecified (6) DVT prophylaxis Priority: Secondary Status: Chronic (7) Leukocytosis Priority: Secondary Status: Acute Assessment and Plan: Likely secondary to recent steroid used. Qualifiers: Leukocytosis type: unspecified Qualified Code(s): D72.829 - Elevated white blood cell count, unspecified Hospital course: Mr. Boyd is a 72 year old male has history of hypertension, hyperlipidemia, peripheral artery disease and severe coronary artery disease status post quadruple bypass and currently having 8 indwelling stents in his heart as well as 5 stents in his lower extremities, last undergoing cardiac catheter 3 years ago where he was seen to have severe three-vessel disease. Patient presented to the emergency room complaining of pressure. Patient underwent nuclear stress test which which showed decreased perfusion in the inferior lateral segment. Cardiology decided to perform a LHC. After LHC cardiology recommended medical therapy. Patient is hemodynamically stable to be discharged home. Commended to follow up with cardiology as an outpatient - Time Spent with Patient Total time spent providing and/or coordinating discharge services: Greater than 30 minutes - Discharge Medications Prescriptions: Amlodipine Besylate 10 mg PO DAILY 30 Days #30 tablet Amlodipine Besylate 10 mg PO DAILY 30 Days #30 tablet Metoprolol Succinate [Kapspargo Sprinkle] 25 mg PO DAILY 30 Days #30 cap.spr.24 Metoprolol XL (24 HR) Succ [Toprol Xl] 25 mg PO DAILY 30 Days #30 tab.er.24h Home Medications: Aspirin Enteric Coated [Aspirin EC] 81 mg PO HS 05/06/15 [History] Multivitamin [Flintstones] 1 tab PO DAILY 05/06/15 [History] Methocarbamol [Robaxin-750] 750 mg PO DAILY 02/16/18 [History] Primidone [Mysoline] 50 mg PO HS 02/16/18 [History] Simvastatin [Zocor] 40 mg PO HS 02/16/18 [History] Valsartan [Diovan] 40 mg PO DAILY 02/16/18 [History] Amlodipine Besylate 10 mg PO DAILY 30 Days #30 tablet 02/20/18 [Rx] Amlodipine Besylate 10 mg PO DAILY 30 Days #30 tablet 02/20/18 [Rx] Metoprolol Succinate [Kapspargo Sprinkle] 25 mg PO DAILY 30 Days #30 cap.spr.24 02/20/18 [Rx] Metoprolol XL (24 HR) Succ [Toprol Xl] 25 mg PO DAILY 30 Days #30 tab.er.24h [Rx] Allergies/Adverse Reactions: 3 Allergy/AdvReac Type Severity Reaction Status Date / Time clopidogrel [From Plavix] Allergy Anaphylaxis Verified 05/06/15 08:43 Sulfa (Sulfonamide AdvReac See Verified 05/06/15 08:43 Antibiotics) Comments tramadol AdvReac Nausea Verified 02/15/18 22:58 Date of admission: 02/16/18 02:09 [facility] care physician: [facility] Consults: 02/16/18 02:24 Consult to Cardiology [CONS] Routine Comment: Consulting Provider: Cardiology [place] Reason for Consult: patient with severe CAD presenting with NSTEMI Call Completed: No 02/17/18 09:35 Consult to Coal Inspector [CONS] Routine Reason for SW Consult: [facility]. 02/20/18 10:57 Consult to Cardiac Rehabilitation-Phase1 [CONS] Routine Comment: Reason for Consult: elevated troponin Call Completed: No - Constitutional Vitals: Temp Pulse Resp BP Pulse Ox 97.7 F 48 15 147/69 99 02/20/18 06:35 02/20/18 06:35 02/20/18 06:35 02/20/18 06:35 02/20/18 06:35 Exam: General: Alert and oriented 3. No acute distress. Skin: Normal color, no rash, no lesions. HEENT: EOM, pupils equal, round and reactive. Cardiovascular: RRR, Normal S1 & S2, no rubs, murmurs or gallops. JVD about 6cm. Lungs: Clear to auscultation bilaterally, no wheezes or crackles. Abdomen: Soft, non-tender, no rigidity. NABS in all 4 quadrants. Extremities: no edema or tenderness. Strength is 5 out of 5 in the upper and lower extremity. Neurological:Normal cognition and motor skills. Rest of the physical exam is non contributory - Patient Status Disposition: Home, Self-Care Condition: Good Functional capacity at discharge: independent ambulation Overall status at discharge: patient is progressing back to baseline - Discharge Instructions Instructions: Chest Pain (DC) Follow Up With: [facility] [Primary Care Provider] - - Diet and Activity Activity: resume usual activities as tolerated Diet: advance to your usual diet
== END 2018-02-20 13:44 | disposition home or self-care (01) | DRG 287 ==
LOC: EMEROOARM 22:49 → 2NENU 22:49 → SUATTDRO 02-16 02:09 → 2NENU 02-16 02:27
PROVIDERS: ADMIT Internal Medicine; ATTEND Internal Medicine